=== PATIENT | female | born 1975 | race Caucasian/White ===

== ENCOUNTER 2024-02-18 14:47 | Outpatient (REF) | payer OTHER, SELFPAY ==
[2024-02-18 15:49] LABS: MANUAL DIFF FLAG NO
[2024-02-18 16:08] LABS: Basophils Absolute Auto 0.1 X10*3/uL (0.0-0.2); Basophils Percent Auto 1.1 % (0-2); Eosinophils Absolute Auto 0.2 X10*3/uL (0.0-0.4); Eosinophils Percent Auto 2.1 % (0-4); Hematocrit 41.2 % (37.0-47.0); Hemoglobin 13.9 g/dl (12.0-16.0); Imm Gran Abs Auto 0.01 X10*3/uL (0.00-0.03); Imm Gran Pct Auto 0.1 % (0.0-0.4); Lymphocytes Absolute Auto 2.9 X10*3/uL (1.2-4.9); Lymphocytes Percent Auto 39.7 % (20-40); Mean Corpuscular HGB Conc 33.7 g/dl (31.0-35.0); Mean Corpuscular Hemoglobin 30.2 pg (27.0-33.0); Mean Corpuscular Volume 89.4 fL (80.0-98.0); Mean Platelet Volume 10.7 fL (9.4-12.3); Monocytes Absolute Auto 0.5 X10*3/uL (0.1-1.2); Monocytes Percent Auto 6.9 % (2-11); Neutrophils Absolute Auto 3.6 x10*3/uL (2.0-8.3); Neutrophils Percent Auto 50.1 % (45-73); Platelet Count 264 X10*3/uL (160-400); Red Blood Count 4.61 X10*6/uL (4.20-5.50); Red Cell Distribution Width 13.3 % (11.0-16.0); White Blood Count 7.2 X10*3/uL (4.8-10.8)
[2024-02-18 17:04] LABS: Erythrocyte Sedimentation Rate 2 MM/HR (0-20)
[2024-02-19 11:13] LABS: IgA 118 mg/dL (47-310); IgG 629 mg/dL (600-1640); IgM 63 mg/dL (50-300)
[2024-02-19 15:54] LABS: Immunoglobulin G Subclass 1 368 mg/dL (382-929); Immunoglobulin G Subclass 2 99 mg/dL (241-700); Immunoglobulin G Subclass 3 25 mg/dL (22-178); Immunoglobulin G Subclass 4 11.5 mg/dL (4-86); Immunoglobulin G Total 553 mg/dL (600-1640)
[2024-02-19 20:19] LABS: Class Alternaria alternata 0; Class Aspergillus fumigatus 0; Class Bermuda Grass 0; Class Birch 0; Class Cat Dander 0; Class Cladosporium herbarum 0; Class Cockroach 0; Class Common Ragweed 0; Class Cottonwood 0; Class Derm. pterony 0; Class Dermatophagoides farinae 0; Class Dog Dander 0; Class Elm 0; Class Maple Box Elder 0; Class Mountain Cedar 0; Class Mouse Urine Protein 0; Class Mugwort 0; Class Oak 0; Class Penicillium crysogenum 0; Class Rough Pigweed 0; Class Sheep Sorrel 0; Class Sycamore 0; Class Timothy Grass 0; Class Walnut Tree 0; Class White Ash 0; Class White Mulberry 0; D001 IgE D pteronyssinus <0.10 kU/L; D002 - IgE D farinae <0.10 kU/L; E001 - IgE Cat Dander <0.10 kU/L; E005 - IgE Dog Dander <0.10 kU/L; E072-IgE Mouse Urine <0.10 kU/L; G002 IgE Bermuda Grass <0.10 kU/L; G006 - IgE Timothy Grass <0.10 kU/L; I006-IgE Cockroach, German <0.10 kU/L; Immunoglobulin E 4 kU/L (<OR=114); M001 IgE Penicillium chrysogen <0.10 kU/L; M002 - IgE Cladosporium herbar <0.10 kU/L; M003 - IgE Aspergillus fumigat <0.10 kU/L; M006 - IgE Alternaria alternat <0.10 kU/L; T001 IgE Maple/Box Elder <0.10 kU/L; T003 IgE Common Silver Birch <0.10 kU/L; T006 - IgE Cedar, Mountain <0.10 kU/L; T007 - IgE Oak, White <0.10 kU/L; T008 IgE Elm, American <0.10 kU/L; T010 - IgE Walnut <0.10 kU/L; T011 - IgE Maple Leaf Sycamore <0.10 kU/L; T014 - IgE Cottonwood <0.10 kU/L; T015 - IgE Ash, White <0.10 kU/L; T070 - IgE White Mulberry <0.10 kU/L; W001 - IgE Ragweed, Short <0.10 kU/L; W006 - IgE Mugwort <0.10 kU/L; W014 IgE Pigweed, Common <0.10 kU/L; W018 IgE Sheep Sorrel <0.10 kU/L
[2024-02-20 14:43] LABS: Cyclic Citrullinated Peptide <16 UNITS
[2024-02-26 14:22] LABS: Asperg fumigatus Precip Abs NEGATIVE (NEGATIVE); Micropoly faeni Abs NEGATIVE (NEGATIVE); Pigeon serum Abs NEGATIVE (NEGATIVE); Saccharo pora viridis Abs NEGATIVE (NEGATIVE); Thermo candidus Abs NEGATIVE (NEGATIVE); Thermoa vulgaris #1 NEGATIVE (NEGATIVE)
[2024-02-27 07:58] LABS: Anti Nuclear Antibody Screen NEGATIVE (NEGATIVE)
== END 2024-02-18 14:48 | disposition home or self-care (01) ==
LOC: HO.LAB 14:47
PROVIDERS: PCP Physician Assistant Medical; Referring Provider Allergy & Immunology; Visit Provider Hospitalist
DX: R91.8 Other nonspecific abnormal finding of lung field (principal); R91.1 Solitary pulmonary nodule; J41.1 Mucopurulent chronic bronchitis; J45.40 Moderate persistent asthma, uncomplicated; T78.40XA Allergy, unspecified, initial encounter
CPT/HCPCS: 36415; 82784; 82785; 85025; 85652; 86003; 86038; 86200; 86331; 86606; 86609

== ENCOUNTER 2024-02-18 14:47 | Outpatient (AMB) | payer OTHER, SELFPAY ==
[2024-02-18 14:53] VITALS: BP 120/68; PULSE 67; O2SAT 97; BMI 27.6
--- NOTE | 2024-02-18 14:53 | MHC.OFFVIS ---
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 The patient is a 49 year woman with a known history of allergies presenting with worsening cough. The patient states that she was in her usual state health until sometime in the winter time when she was exposed to a sick contact. She started developing worsening respiratory symptoms and cough. She ultimately after that went on a trip to [place]. While she was there she also became sick with a respiratory virus. She did test negative for COVID-19. Ultimately after that the patient started developing worsening productive cough. The mucus is excessive and discolored typically greenish in color. She was evaluated multiple times by medical transcription editor. She was given about 4 rounds of prednisone and antibiotics. Although she does feel better she feels like she is still having significant chest congestion. She still has a moderate productive cough. She feels like her lungs are getting better but still feels significant sinus congestion and postnasal drip. She had been evaluated by ENT as well. As part of the workup she did have a CT scan of the chest done at [facility] in 10/23/2023 which was personally by me. No evidence of any active disease Noted. Although possibly some mild bronchitis based on some thickening of the airways. In addition to that she has had some blood work Including a normal eosinophil count. Has not had blood work now in more than a year. Therefore will going to go ahead and request additional blood work to assess her immune system inflammatory conditions and also allergy issues. As far as exposures the patient has had exposure to mold. She does have a humidifier in her home though. No obvious smoldering home. Denies any birds. Denies any exposure to any fumes or toxins. She is a nonsmoker. Does not vape. 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 On examination, she does have significant inflammation nasal turbinates. The patient also has evidence of purulent secretions in her posterior pharynx. Her cough appears to be deep and congested consistent with lower respiratory involvement as well. [facility] Medical History (Updated 02/18/24 @ 23:33 by Pankaj Rucker MD) Allergies Asthma Sinusitis Chronic bronchitis Social History (Updated 02/18/24 @ 15:01 by TATUM Fair) Patient Tobacco Use Status: Never used Tobacco Review of Systems Const Reports difficulty sleeping and Denies fever(s) Eyes Reports no additional complaints ENT Reports nasal congestion, Reports nasal discharge and Reports post nasal drip Card Denies chest pain Resp Reports change in phlegm color, Reports chest congestion, Reports cough and Reports wheezing GI Reports no additional complaints Musc Reports no additional complaints Skin/Breast Denies rash Carl/Lymph Denies lymphadenopathy Aller/Immun Reports wheezing Physical Exam Vital Signs: Last Vital Signs Pulse 67 02/18/24 14:53 BP 120/68 02/18/24 14:53 Pulse Ox 97 02/18/24 14:53 Oxygen Delivery Method Room Air 02/18/24 14:53 BMI result Body Mass Index 27.6 Const General: comfortable HEENT Ears: TM's normal bilaterally General nose exam: Normal external nose present, Abnormal mucous membranes and turbinates present erythematous and no nasal polyps Throat: Yes postnasal drainage Neck Neck: Yes supple Chest Chest palpation & inspection: normal inspection of the chest Resp Effort & Inspection: normal respiratory effort Auscultation: diminished lung sounds and other (coarse on the right side) Cardio Heart sounds: S1 normal heart sound present and S2 normal heart sound present GI Palpation (GI): Soft to palpation Skin General skin exam: no rashes or lesions noted Extrem General: Yes no clubbing, cyanosis or edema Assessment & Plan Assessment & Plan (1) Chronic bronchitis: Code(s): J42 - Unspecified chronic bronchitis Category: Medical Qualifiers: Chronic bronchitis type: mucopurulent Qualified Code(s): J41.1 - Mucopurulent chronic bronchitis (2) Sinusitis: Code(s): J32.9 - Chronic sinusitis, unspecified Category: Medical Qualifiers: Sinusitis location: unspecified location Chronicity: chronic Qualified Code(s): J32.9 - Chronic sinusitis, unspecified (3) Asthma: Code(s): J45.909 - Unspecified asthma, uncomplicated Category: Medical Qualifiers: Asthma severity: moderate Asthma persistence: persistent Asthma complication type: uncomplicated Qualified Code(s): J45.40 - Moderate persistent asthma, uncomplicated (4) Allergies: Code(s): T78.40XA - Allergy, unspecified, initial encounter Category: Medical Qualifiers: Encounter type: initial encounter Qualified Code(s): T78.40XA - Allergy, unspecified, initial encounter Plan stop spiriva, flovent start Trelegy 200mcg daily Xopenex as needed neti bottle budesonide daily start azithromycin MWF will need an EKG soon Bloodwork If no better in 3-4 weeks, we will plan a bronchoscopy F/U 6-8 weeks Orders: Orders Cyclic Citrullinated Peptide Today J42 - Unspecified chronic bronchitis Immunoglobulin E Today J42 - Unspecified chronic bronchitis Resp Allergy Profile Region I Today J42 - Unspecified chronic bronchitis, R91.1 - Solitary pulmonary nodule Hypersensitive Pneumonitis Prf Today J42 - Unspecified chronic bronchitis, R91.8 - Other nonspecific abnormal finding of lung field LEILANI Reflex Titer and Pattern Today J42 - Unspecified chronic bronchitis Complete Blood Count Auto Diff Today J42 - Unspecified chronic bronchitis Immunoglobulin G Subclasses Today J42 - Unspecified chronic bronchitis Immunoglobulins,IgG IgA IgM Today J42 - Unspecified chronic bronchitis Erythrocyte Sedimentation Rate Today J42 - Unspecified chronic bronchitis Medications: New budesonide 0.5 mg (2 mL) inhalation DAILY 30 days 60 mL 2RF azithromycin Take 1 tablet on Saturday/Saturday/Saturday 250 mg PO 3XW 28 days 12 tabs 3RF K21.9 - Gastro-esophageal reflux disease without esophagitis [id number]-[id number]-twriqmdb 200-62.5-25 mcg (Trelegy Ellipta) 1 inh inhalation DAILY 30 days 60 ea 12RF Coding Level of Care Code New Pt Level 4 (41457) Diagnoses Mucopurulent chronic bronchitis J41.1 Chronic bronchitis type: mucopurulent Chronic sinusitis, unspecified location J32.9 Sinusitis location: unspecified location Chronicity: chronic Moderate persistent asthma without complication J45.40 Asthma severity: moderate Asthma persistence: persistent Asthma complication type: uncomplicated Allergy, initial encounter T78.40XA Encounter type: initial encounter Time Spent (min) 40
== END 2024-02-18 15:31 | disposition home or self-care (01) ==
PROVIDERS: PCP Physician Assistant Medical; Referring Provider Allergy & Immunology; Visit Provider Hospitalist
DX: J41.1 Mucopurulent chronic bronchitis (principal); J32.9 Chronic sinusitis, unspecified; J45.40 Moderate persistent asthma, uncomplicated; T78.40XA Allergy, unspecified, initial encounter
CPT/HCPCS: 99204

== ENCOUNTER 2024-04-09 14:17 | Outpatient (AMB) | payer OTHER, SELFPAY ==
--- NOTE | 2024-04-09 14:29 | MHC.OFFVIS ---
Vital Signs 04/09/24 14:30 Height 5 ft 2 in Weight 145 lb 8.081 oz BMI 26.6 BP 128/70 Blood Pressure Location Lt brachial Position Sitting Pulse 60 Pulse Source Pulse Oximeter Pulse Oximetry (%) 97 Oxygen Delivery Method Room Air Intake Visit Reasons: Asthma Shoe Cleaner Required: No Allergies aspirin Allergy (Severe, Verified 04/09/24 14:33) Itching sulfamethoxazole [From Bactrim] Allergy (Severe, Verified 04/09/24 14:33) Difficulty Breathing trimethoprim [From Bactrim] Allergy (Severe, Verified 04/09/24 14:33) Difficulty Breathing Sulfa Drugs Adverse Reaction (Severe, Uncoded 04/09/24 14:33) Hives HPI Comments Details: The patient is a 49 year woman with a known history of allergies presenting with worsening cough. The patient states that she was in her usual state health until sometime in the winter time when she was exposed to a sick contact. She started developing worsening respiratory symptoms and cough. She ultimately after that went on a trip to [place]. While she was there she also became sick with a respiratory virus. She did test negative for COVID-19. Ultimately after that the patient started developing worsening productive cough. The mucus is excessive and discolored typically greenish in color. She was evaluated multiple times by medical researcher. She was given about 4 rounds of prednisone and antibiotics. Although she does feel better she feels like she is still having significant chest congestion. She still has a moderate productive cough. She feels like her lungs are getting better but still feels significant sinus congestion and postnasal drip. She had been evaluated by ENT as well. As part of the workup she did have a CT scan of the chest done at [facility] in 10/23/2023 which was personally by me. No evidence of any active disease Noted. Although possibly some mild bronchitis based on some thickening of the airways. In addition to that she has had some blood work Including a normal eosinophil count. Has not had blood work now in more than a year. Therefore will going to go ahead and request additional blood work to assess her immune system inflammatory conditions and also allergy issues. As far as exposures the patient has had exposure to mold. She does have a humidifier in her home though. No obvious smoldering home. Denies any birds. Denies any exposure to any fumes or toxins. She is a nonsmoker. Does not vape. 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 On examination, she does have significant inflammation nasal turbinates. The patient also has evidence of purulent secretions in her posterior pharynx. Her cough appears to be deep and congested consistent with lower respiratory involvement as well. 04/09/2024 the patient is here for a pulmonary follow-up visit. She is feeling a little better. She responded well to the Trelegy inhaler. Her chest tightness and wheezing has improved. In addition to that she has been on the azithromycin 3 times a week. Her chest congestion is also better. Although her nose is still an issue. She has had significant irritation to the nose. Specially when using the budesonide we did Neti bottle. She has been getting significant irritation and pain. The areas significantly inflamed to psych was before. Therefore, will go ahead and stop any kind of irritating nasal therapy at this time. We did review her blood work. She does have a low IgG suggesting some degree of hypogammaglobulinemia. Therefore will continue the azithromycin right now and will go ahead and see if she has been vaccinated for pneumonia. If she has not she can get her pneumococcal 23 Valent we can did check her titers a few weeks later to make sure that she is developing an adequate response in view of her immunodeficiency. In view of her significant sinusitis will go ahead and put a referral went to ENT in order to better address the issues. [facility] Medical History (Updated 04/09/24 @ 15:08 by Pankaj Rucker MD) Allergies Asthma Sinusitis Chronic bronchitis Social History (Updated 02/18/24 @ 15:01 by TATUM Fair) Patient Tobacco Use Status: Never used Tobacco Review of Systems Const Reports difficulty sleeping and Denies fever(s) Eyes Reports no additional complaints ENT Reports nasal congestion, Reports nasal discharge, Reports post nasal drip and Reports sinus pressure Card Denies chest pain Resp Reports change in phlegm color, Reports chest congestion, Reports cough and Reports wheezing GI Reports no additional complaints Musc Reports no additional complaints Skin/Breast Denies rash Carl/Lymph Denies lymphadenopathy Aller/Immun Reports wheezing Physical Exam Vital Signs: Last Vital Signs Pulse 60 04/09/24 14:30 BP 128/70 04/09/24 14:30 Pulse Ox 97 04/09/24 14:30 Oxygen Delivery Method Room Air 04/09/24 14:30 BMI result Body Mass Index 26.6 Const General: comfortable HEENT Ears: TM's normal bilaterally General nose exam: Normal external nose present, Abnormal mucous membranes and turbinates present erythematous and no nasal polyps Throat: Yes postnasal drainage Neck Neck: Yes supple Chest Chest palpation & inspection: normal inspection of the chest Resp Effort & Inspection: normal respiratory effort Auscultation: diminished lung sounds and other (coarse on the right side) Cardio Heart sounds: S1 normal heart sound present and S2 normal heart sound present GI Palpation (GI): Soft to palpation Skin General skin exam: no rashes or lesions noted Extrem General: Yes no clubbing, cyanosis or edema Assessment & Plan Assessment & Plan (1) Chronic bronchitis: Code(s): J42 - Unspecified chronic bronchitis Category: Medical Qualifiers: Chronic bronchitis type: mucopurulent Qualified Code(s): J41.1 - Mucopurulent chronic bronchitis (2) Sinusitis: Code(s): J32.9 - Chronic sinusitis, unspecified Category: Medical Qualifiers: Chronicity: chronic Sinusitis location: unspecified location Qualified Code(s): J32.9 - Chronic sinusitis, unspecified (3) Asthma: Code(s): J45.909 - Unspecified asthma, uncomplicated Category: Medical Qualifiers: Asthma complication type: uncomplicated Asthma persistence: persistent Asthma severity: moderate Qualified Code(s): J45.40 - Moderate persistent asthma, uncomplicated (4) Allergies: Code(s): T78.40XA - Allergy, unspecified, initial encounter Category: Medical Qualifiers: Encounter type: initial encounter Qualified Code(s): T78.40XA - Allergy, unspecified, initial encounter (5) Hypogammaglobulinemia: Code(s): 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 Category: Medical Plan continue Trelegy 200mcg daily Xopenex as needed neti bottle stop budesonide daily start nasonex ENT referral continue azithromycin MWF EKG Bloodwork, strep pneumo titers (had PSV23 appx 2021) consider IVIG if titers a low and continues to be symptomatic F/U 6-8 weeks Orders: Orders ECG 12 lead EKG 04/09/24 J44.9 - Chronic obstructive pulmonary disease, unspecified Immunoglobulin G Subclasses 04/09/24 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 S pneumoniae IgG Ab 23 04/09/24 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 Erythrocyte Sedimentation Rate 04/09/24 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 Referrals Ear/Nose/Throat Referral J32.9 - Chronic sinusitis, unspecified Medications: New mometasone 50 mcg/actuation (Nasonex 24hr Allergy) administer into each nostril 2 sprays intranasal DAILY 17 grams 6RF 30 days Coding Level of Care Code Est Pt Level 4 (26726) Diagnoses Mucopurulent chronic bronchitis J41.1 Chronic bronchitis type: mucopurulent Chronic sinusitis, unspecified location J32.9 Chronicity: chronic Sinusitis location: unspecified location Moderate persistent asthma without complication J45.40 Asthma complication type: uncomplicated Asthma persistence: persistent Asthma severity: moderate Allergy, initial encounter T78.40XA Encounter type: initial encounter Hypogammaglobulinemia D80.1 Time Spent (min) 17
[2024-04-09 14:30] VITALS: BP 128/70; PULSE 60; O2SAT 97; BMI 26.6
== END 2024-04-09 15:08 | disposition home or self-care (01) ==
PROVIDERS: PCP Physician Assistant Medical; Visit Provider Hospitalist
DX: J41.1 Mucopurulent chronic bronchitis (principal); J32.9 Chronic sinusitis, unspecified; J45.40 Moderate persistent asthma, uncomplicated; T78.40XA Allergy, unspecified, initial encounter; D80.1 Nonfamilial hypogammaglobulinemia
CPT/HCPCS: 99214

== ENCOUNTER → 2024-04-09 14:17 | Outpatient (BNVA) | payer OTHER, SELFPAY | PROVIDERS: PCP Physician Assistant Medical; Visit Provider Hospitalist | DX: J42 Unspecified chronic bronchitis (principal) ==

== ENCOUNTER 2024-04-14 15:24 | Outpatient (REF) | payer OTHER, SELFPAY ==
--- NOTE | 2024-04-14 15:28 | ECG_ITS ---
Test Reason : COPD Blood Pressure : / mmHG Vent. Rate : 049 BPM Atrial Rate : 049 BPM P-R Int : 152 ms QRS Dur : 088 ms QT Int : 492 ms P-R-T Axes : 050 088 064 degrees QTc Int : 444 ms Sinus bradycardia Abnormal ECG No previous ECGs available Referred By: Pankaj Rucker Electronically Signed By:MEGAN MOCTEZUMA
[2024-04-14 18:12] LABS: Erythrocyte Sedimentation Rate 2 MM/HR (0-20)
[2024-04-15 14:43] LABS: Immunoglobulin G Subclass 1 366 mg/dL (382-929); Immunoglobulin G Subclass 2 99 mg/dL (241-700); Immunoglobulin G Subclass 3 25 mg/dL (22-178); Immunoglobulin G Subclass 4 11.3 mg/dL (4-86); Immunoglobulin G Total 567 mg/dL (600-1640)
[2024-04-15 22:33] LABS: Immunoglobulin E <2 kU/L (<OR=114)
== END 2024-04-14 15:25 | disposition home or self-care (01) ==
LOC: HO.LAB 15:24
PROVIDERS: PCP Physician Assistant Medical; Visit Provider Hospitalist
DX: D80.1 Nonfamilial hypogammaglobulinemia (principal); J42 Unspecified chronic bronchitis
CPT/HCPCS: 36415; 82784; 82785; 85652; 86317; 93005

== ENCOUNTER 2024-06-15 16:22 | Outpatient (REF) | payer OTHER, SELFPAY ==
[2024-06-15 16:36] LABS: MANUAL DIFF FLAG NO
[2024-06-15 16:41] LABS: Basophils Absolute Auto 0.1 X10*3/uL (0.0-0.2); Eosinophils Absolute Auto 0.2 X10*3/uL (0.0-0.4); Eosinophils Percent Auto 2.3 % (0-4); Hematocrit 38.4 % (37.0-47.0); Hemoglobin 13.2 g/dl (12.0-16.0); Imm Gran Abs Auto 0.02 X10*3/uL (0.00-0.03); Imm Gran Pct Auto 0.3 % (0.0-0.4); Lymphocytes Absolute Auto 2.7 X10*3/uL (1.2-4.9); Lymphocytes Percent Auto 36.8 % (20-40); Mean Corpuscular HGB Conc 34.4 g/dl (31.0-35.0); Mean Corpuscular Hemoglobin 30.3 pg (27.0-33.0); Mean Corpuscular Volume 88.1 fL (80.0-98.0); Mean Platelet Volume 10.3 fL (9.4-12.3); Monocytes Absolute Auto 0.5 X10*3/uL (0.1-1.2); Monocytes Percent Auto 6.9 % (2-11); Neutrophils Absolute Auto 3.8 x10*3/uL (2.0-8.3); Neutrophils Percent Auto 52.7 % (45-73); Platelet Count 233 X10*3/uL (160-400); Red Blood Count 4.36 X10*6/uL (4.20-5.50); Red Cell Distribution Width 12.8 % (11.0-16.0); White Blood Count 7.3 X10*3/uL (4.8-10.8)
[2024-06-15 17:15] LABS: Anion Gap 12 (12-20); Blood Urea Nitrogen 14 mg/dL (9-16); Carbon Dioxide 24 mmol/L (22-29); Chloride 109 mmol/L (96-108); Estimated Glomerular Filt Rate > 60; Glucose Random 73 mg/dL (60-115); Potassium 3.6 mmol/L (3.3-5.1); Sodium 141 mmol/L (135-145)
[2024-06-15 17:29] LABS: Erythrocyte Sedimentation Rate 1 MM/HR (0-20)
[2024-06-16 13:43] LABS: Immunoglobulin G Subclass 1 360 mg/dL (382-929); Immunoglobulin G Subclass 2 105 mg/dL (241-700); Immunoglobulin G Subclass 3 20 mg/dL (22-178); Immunoglobulin G Subclass 4 10.4 mg/dL (4-86); Immunoglobulin G Total 550 mg/dL (600-1640)
== END 2024-06-15 16:23 | disposition home or self-care (01) ==
LOC: HO.LAB 16:22
PROVIDERS: PCP Physician Assistant Medical; Visit Provider Hospitalist
DX: D80.1 Nonfamilial hypogammaglobulinemia (principal); D84.89 Other immunodeficiencies
CPT/HCPCS: 36415; 80048; 82784; 85025; 85652; 86317

== ENCOUNTER 2024-07-30 15:05 | Outpatient (REF) | payer OTHER, SELFPAY ==
--- OUTSIDE RECORDS SUMMARY | 2024-07-30 15:08 | XMS_ITS ---
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 Name Role Phone NONI SOLORZANO Primary Care Provider REASON FOR VISIT R/S sema shot Encounters Encounter Location Date Provider Diagnosis [address] [place] [id number] 07/27/2024 NONI SOLORZANO PLAN OF TREATMENT Next Appt Details Provider Name:JAYSON LARA, 08/06/2024 03:15:00 PM, [address], [place], [address], Provider Name:JAYSON LARA, 08/13/2024 03:15:00 PM, [address], [place], [address], Provider Name:DEISI YAN, 08/17/2024 03:15:00 PM, [address], [place], [address], Progress Notes * SOFIA NATION EDOB:1974 (49 yo F)Acc No.[id number]:07/27/2024 Patient:??SOFIA NATION :1975?Age:49 Y?Sex:Fe male Address:[address] [place] [address] * true * Date:??
--- OUTSIDE RECORDS SUMMARY | 2024-07-30 15:08 | XMS_ITS | Patient Health Record ---
Author Organization [facility] Address [address] [facility] [address] [place] [address] Care Team Providers Care Warehouse Unloader Name Role Phone Phani Barkley Primary Care Provider Unavailabl e Allergies Allergen (clinical drug ingredient) Drug/Non Drug Allergy documented on EMR Reaction Allergy Type Onset Date Status Atronine Ghs, Gluten free (uncoded) Unknown Allergy Active aspirin Aspirin Unknown Drug Allergy Active Substance with sulfonamide structure and antibacterial mechanism of action (substance) Sulfa Antibiotics Unknown Drug Allergy Active Reason For Referral No Information Medications Medication SIG (Take, Route, Frequency, Duration) Notes Start Date End Date Status Singulair 10 MG 1 tablet Orally Once a day Not-Taking SUMAtriptan Succinate 50 MG 1 tablet at least 2 hours between doses as needed Orally Once a day Active Wellbutrin XL 150 MG 1 tablet in the mor lawanda Orally twice daily Active NuvaRing 0.12-0.015 MG/24HR [address] for 3 weeks, remove, and replace with a new ring after 7 day break Vaginal Active Align - as directed Orally A ctive Symbicort 160-4.5 MCG/ACT 2 puffs Inhala tion Twice a day Active ProAir HFA 108 (90 Base) MCG/ACT 1 puff as needed Inhalation every 4 hrs Active valACYclovir HCl 500 MG 1 tablet Orally Once a day prn Active Probiotic Not-Taking Multivitamin - 1 tablet Orally Once a day Active Yanni Allergy 180 MG 1 tablet Swallow whole with water; do not take with fruit juices. 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 [address] [facility] [place] [phone] [id number] Kenzie Crawford Self - patient is the insured Medical (General) History Medical History History ICD Code asthma seasonal allergies headache rosacea anxiety Surgical History Surgery Date(Month/Year) cataract removal uterine ablation
--- OUTSIDE RECORDS SUMMARY | 2024-07-30 15:08 | XMS_ITS ---
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 Name Role Phone NONI SOLORZANO Primary Care Provider JHONNY BARKLEY [phone] Encounters Encounter Location Date Provider Diagnosis [facility] [address] [place] [address] 07/27/2024 JHONNY BARKLEY PLAN OF TREATMENT Next Appt Details Provider Name:JHONNY BARKLEY, 08/06/2024 03:15:00 PM, [address], [place], [address], Provider Name:JHONNY BARKLEY, 08/13/2024 03:15:00 PM, [address], [place], [address], Provider Name:DEISI YAN, 08/17/2024 03:15:00 PM, [address], [place], [address], Progress Notes * SOFIA NATION EDOB:1974 (49 yo F)Acc No.[id number]:07/27/2024 Patient:??SOFIA NATION Provider:??Jhonny Barkley MD :1975?Age:49 Y?Sex:Fe male Date:07/27/2024 Address[address] [place] Pcp:NONI SOLORZANO Subjective: * Chief Complaints: * ? * Medical History:?? Objective: Assessment: Plan: * Treatment: * Images: Billing Information: * Visit Code:?? * Procedure Codes:?? * Sign off status: Pending * Provider:??Jhonny Barkley MD Date:??07/27
--- OUTSIDE RECORDS SUMMARY | 2024-07-30 15:08 | XMS_ITS | Patient Health Record ---
Author Organization [facility] Address [address] [facility] [place] [address] Care Team Providers Care Mate Chief Name Role Phone NONI SOLORZANO Primary Care Provider BARKLEY, JHONNY Unavailable [phone] DEISI YAN Unavailable [phone] ALLERGIES Allergen (clinical drug ingredient) Drug/Non Drug Allergy documented on EMR Reaction Allergy Type Onset Date Status aspirin aspirin (uncoded) Unknown Allergy Ac tive atronine ghs (uncoded) Unknown Allergy Active Gluten gluten free (uncoded) Unknown Allergy Active Substance with sulfonamide structure and antibacterial mechanism of action (substance) sulfa (uncoded) Unknown Allergy Active RESULTS Component Value Reference Range Notes MYCOPLASMA PNEUMONIAE ANTIBO DIES (IGG,IGM) Reviewed date:10/09/2023 10:29:47 AM Interpretation: Performing Lab:JONO, [facility] [id number] Lyla Argueta, LsbtbkzroGI[address] Geremias Erazo M.D.,PhD Notes/Report: MYCOPLASMA PNEUMONIAE ANTIBODY (IGG) <=0.90 <=0.90 Reference Range: <=0.90 Negative 0.91-1.09 Equivocal >=1.10 Positive A positive IgG result indicates that the patient has antibody to Mycoplasma. It does not differentiate between an active or past infection. The clinical diagnosis must be interpreted in conjunction with the clinical signs and symptoms of the patient. MYCOPLASMA PNEUMONIAE ANTIBODY (IGM) 68 <770 U/mL Reference Range: <770 U/ml Negative 770-950 U/mL Low positive >950 U/mL Positive A positive IgM antibody result is consistent with recent infection. However, a negative result does not necessarily rule out recent infection as some individuals may not mount another IgM response, if previously infected. A positive IgM antibody result with or without a positive IgG antibody result, is consistent with recent infection. However, a negative result does not necessarily rule out recent infection as some individuals may not mount another IgM response, if previously infected. A positive IgG antibody result in the absence of a positive IgM antibody result, indicates that the patient has antibody to Mycoplasma. It does not differentiate between an active or past infection. The clinical diagnosis must be interpreted in conjunction with the clinical signs and symptoms of the patient. S. PNEUMONIAE ANTIGENS, URIN E Reviewed date:10/07/2023 08:11:28 AM Interpretation: Performing Lab:JONO [facility] [id number] [facility] Argueta, LasnjhecmZT[address] Geremias Erazo M.D.,PhD Notes/Report: S. PNEUMONIAE ANTIGENS, URINE Not Detected Not Detected T4, FREE Reviewed date:10/04/2023 08:06:46 AM Interpretation: Performing Lab:GEOFFREY2, [facility] Tonio Sarmiento Notes/Report: T4, FREE 0.9 0.8-1.8 ng/dL TSH Reviewed date:10/04/2023 08:06:46 AM Interpretation: Performing Lab:GEOFFREY2 [facility] Tonio Sarmiento Notes/Report: TSH 1.89 Reference Range > or = 20 Years 0.40-4.50 Ranges First trimester 0.26-2.66 Second trimester 0.55-2.73 Third trimester 0.43-2.91 T3, FREE Reviewed date:10/04/2023 08:06:46 AM Interpretation: Performing Lab:GEOFFREY2, [facility] [address] Tonio Sarmiento Notes/Report: T3, FREE 2.9 2.3-4.2 pg/mL LEGIONELLA PNEUMOPHILA AB (I GG), IFA Reviewed date:10/10/2023 08:16:20 AM Interpretation: Performing Lab:EZ, [facility]/Tyrel [facility],[address] [address] [place] MountLjbeoabrbbAG[address] Erica Nguyen MD,PhD,SHIRLEY Notes/Report: LEGIONELLA PNEUMOPHILA AB (IGG), IFA <1:64 REFERENCE RANGE: <1:64 This assay detects serum IgG antibodies to Legionella pneumophila serogroups 1-7. A single IgG titer >1:256 provides presumptive evidence of infection at an undetermined time. A four-fold rise in IgG titer to >=1:256 from the acute to the convalescent (4-6 weeks post-acute) phase provides evidence of a recent infection with Legionella. A negative result (titer <1:64) may indicate early infection, with sample collection prior to antibody development; submission of a later sample is suggested if clinically warranted. This test was developed and its analytical performance characteristics have been determined by [facility]. It has not been cleared or approved by the FDA. This assay has been validated pursuant to the CLIA regulations and is used for clinical purposes. US Liver Reviewed date:10/17/2023 01:56:35 PM Interpretation: Performing Lab: Notes/Report: Original [facility]ing [facility] [id number] Reviewed date:05/19/2024 08:04:55 AM Interpretation: Performing Lab:[facility], [address] [place] [address], Phone - [phone], Director [place] Notes/Report: Hemoglobin A1c 5.2 4.8-5.6 % . Prediabetes: 5.7 - 6.4 Diabetes: >6.4 Glycemic control for adults with diabetes: <7.0 Vitamin [id number] Reviewed date:05/19/2024 08:04:55 AM Interpretation: Performing Lab:[facility], [address] [place] [address], [place], Phone - [phone], Director [place] Notes/Report: Vitamin B12 578 832-8778 pg/mL Urinalysis, Complete-[id number] Reviewed date:05/19/2024 08:04:55 AM Interpretation: Performing Lab:[facility], [address] [facility], [place], Phone - [phone], Director - MDJodry Notes/Report: Specific [place] 1.023 1.005-1.030 pH 5.5 5.0-7.5 Urine-Color Yellow Yellow Appearance Clear Clear WBC Esterase Negative Negative Protein Negative Negative/Trace Glucose Negative Negative Ketones Negative Negative Occult Blood Negative Negative Bilirubin Negative Negative Urobilinogen,Semi-Qn 0.2 0.2-1.0 mg/dL Nitrite, Urine Negative Negative Microscopic Examination Micr oscopic follows if indicated. Microscopic Examination See below: Micr oscopic was indicated and was performed. WBC None seen 0 - 5 /hpf RBC None seen 0 - 2 /hpf Epithelial Cells (non renal) >10 0 - 10 /hpf Epithelial Cells (renal) Casts None seen None seen /lpf Cast Type Crystals Crystal Type Mucus Threads Bacteria None seen None seen/Few Yeast Trichomonas Comment [id number] Reviewed date:05/19/2024 08:04:55 AM Interpretation: Performing Lab:[facility], [address] [facility], Phone - [phone], Director - [facility] Notes/Report: TSH 1.540 0.450-4.500 uIU/mL CBC With Differential/Platel et-[id number] Reviewed date:05/19/2024 08:04:55 AM Interpretation: Performing Lab:[facility], [address] [facility], [place], Phone - [phone], Director [facility] Notes/Report: WBC 5.2 3.4-10.8 x10E3/uL RBC 4.70 3.77-5.28 x10E6/uL Hemoglobin 14.3 11.1-15.9 g/dL Hematocrit 43.2 34.0-46.6 % MCV 92 79-97 fL MCH 30.4 26.6-33.0 pg MCHC 33.1 31.5-35.7 g/dL RDW 12.4 11.7-15.4 % Platelets 226 150-450 x10E3/uL Neutrophils 53 Not Estab. % Lymphs 31 Not Estab. % Monocytes 12 Not Estab. % Eos 3 Not Estab. % Basos 1 Not Estab. % Immature Cells Neutrophils (Absolute) 2.8 1.4-7.0 x10E3/uL Lymphs (Absolute) 1.6 0.7-3.1 x10E3/uL Monocytes(Absolute) 0.6 0.1-0.9 x10E3/uL Eos (Absolute) 0.1 0.0-0.4 x10E3/uL Baso (Absolute) 0.0 0.0-0.2 x10E3/uL Immature Granulocytes 0 Not Estab. % Immature Grans (Abs) 0.0 0.0-0.1 x10E3/uL NR Hematology Comments: Vitamin D, 16-[id number] Reviewed date:05/19/2024 08:04:55 AM Interpretation: Performing Lab:[facility], [address] [place] [address], Phone - [phone], Director - Shukriy Notes/Report: Vitamin D, 25-Hydroxy 42.5 30.0-100.0 ng/mL Vitamin D deficiency has been defined by the [place] of Medicine and an Endocrine Society practice guideline as a level of serum 25-OH vitamin D less than 20 ng/mL (1,2). The Endocrine Society went on to further define vitamin D insufficiency as a level between 21 and 29 ng/mL (2). 1. IOM ([place] of Medicine). 2010. Dietary reference intakes for calcium and D. [place]: The National Academies Press. 2. Carol MF, Kobe NC, Pamella MYLES, et al. Evaluation, treatment, and prevention of vitamin D deficiency: an Endocrine Society clinical practice guideline. JCEM. 2010; 96(7):1911-30. Lipid Panel-[id number] Reviewed date:05/19/2024 08:03:26 AM Interpretation: Performing Lab:[facility], [address] [place] [address], Phone - [phone], Director - Aleta Notes/Report: Cholesterol, Total 169 100-199 mg/dL Triglycerides 156 0-149 mg/dL HDL Cholesterol 76 >39 mg/dL VLDL Cholesterol Vidal 26 5-40 mg/dL LDL Chol Calc (RUST) 67 0-99 mg/dL LDL Calc Comment: Comp. Metabolic Panel (14)-3 Reviewed date:05/19/2024 08:04:55 AM Interpretation: Performing Lab:[facility], [address] [facility], [place], Phone - [phone], Director - Aleta Notes/Report: Glucose 91 70-99 mg/dL BUN 13 6-24 mg/dL Creatinine 0.93 0.57-1.00 mg/dL eGFR 75 >59 mL/min/1.73 BUN/Creatinine Ratio 14 9-23 Sodium 142 134-144 mmol/L Potassium 4.0 3.5-5.2 mmol/L Chloride 103 96-106 mmol/L Carbon Dioxide, Total 21 20-29 mmol/L Calcium 9.4 8.7-10.2 mg/dL Protein, Total 6.0 6.0-8.5 g/dL Albumin 4.1 3.9-4.9 g/dL Globulin, Total 1.9 1.5-4.5 g/dL Bilirubin, Total <0.2 0.0-1.2 mg/dL Alkaline Phosphatase 58 44-121 IU/L AST (SGOT) 21 0-40 IU/L ALT (SGPT) 16 0-32 IU/L REASON FOR REFERRAL Reason The tube that perez s bile from pancreas and meets with thegall bladder is a bit wider than it should. Lets refer to GI for opinon if other work up needs to be done. as Diagnosis 1 Abnormal ultrasound (R93.89) Referral Organization [facility] Referring Provider First Name NONI Referring Provider Last Name RASHAD Referring Provider Speciality Internal M edicine Referred Provider Specialty Gastrointest inal surgeon Clinical Notes aletha perkins 0 10/17/2023 01:59:52 PM > sent to [facility] GI seen for colonscopy would like to see her again if not quinmaddie jasso krystal 10/29/2023 02:29:06 PM >refaxed [phone] and given to pt paper referral, Pedro Sims 03/05/2024 01:37:07 PM > The patient was seen on 11/26/2023 Referral Priority Routine MEDICATIONS Medication SIG (Take, Route, Frequency, Duration) Notes Start Date End Date Status Citalopram Hydrobromide 10 MG 1 tablet Orally Once a day for 10 days 02/20/2024 Active Probiotic - as directed Orally Active FLUoxetine HCl 20 MG 1 capsule Orally On ce a day for 30 days 02/20/2024 Active Azithromycin 500 MG 1 tablet Orally Thre e times a Week Active Tamoxifen Citrate 20 MG 1 tablet Orally Once a day Active Trelegy Ellipta 200-62.5-25 MCG/ACT 1 puff Inhalation Once a day Active IMMUNIZATIONS Vaccine Route Administration Date Status Comme nts Tdap IM Intramuscular 02/11/2023 Administered SOCIAL HISTORY Tobacco Use: Social History Observation Description Date Details (start date - stop date) Never Smoker NA - NA Sex Assigned At : Social History Observation Description Sex Assigned At Unknown Tobacco Use/Smoking Question Answer Notes Are you a nonsmoker Section Notes: Tob: Never ETOH: Social Drug: None [facility]- [employer] Handler 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 House Supervisor Tob: Never ETOH: Social Drug: None [facility]- [employer]itions Handler 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 House Supervisor Tob: Never ETOH: Social Drug: None [facility]- [employer]itions Handler 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 House Supervisor PROBLEMS Problem Type ICD Code Onset Dates Problem Status W/U Status Risk SNOMED Code Notes Problem Vitamin B12 deficien cy anemia, unspecified (D51.9) Active confirmed Vitamin B>12< deficiency anaemia (70867863) Problem Vitamin D deficiency , unspecified (E55.9) Active confirmed Vitamin D deficiency (13542832) Problem Hyperlipidemia, unspecified (E78.5) Active confirmed Hyperlip idemia (74485686) Problem Other forms of nystagmus (H55.09) Active confirmed Nystagmus (258339) Problem Unspecified asthma, uncomplicated (J45.909) Active confirmed Uncomplicated asthma (disorder) (136085129) Problem Congenital cataract (Q12.0) Active confirmed Congenital cataract (83893553) Problem Acquired hypothyroidism (E03.9) Active confirmed Acqui red hypothyroidism (414550960) Problem Anxiety (F41.9) Active confirmed Anxiet y (31506435) Problem Adult general medica l exam (Z00.00) Active confirmed Adult health examination (207093117) Problem Depression, unspecified depression type (F32.9) Active confirmed Depressive disorder (disorder) (83306982) Problem Seasonal allergies (J30.2) Active confirmed Seasonal allerg y (077714416) Problem Pain (R52) Active confirmed Pain (48464 000) Problem Sinusitis, unspecifi ed chronicity, unspecified location (J32.9) Active confirmed Chronic sinusitis (69002126) Problem Vitamin D deficiency (E55.9) Active confirmed Vitamin D deficiency (28360117) Problem Restless leg syndrom e (G25.81) Active confirmed Restless legs syndrome (42646289) Problem Abnormal ultrasound (R93.89) Active confirmed Ultrasound scan abnormal (694381363) Problem Diabetes mellitus screening (Z13.1) Active confirmed Diabetes mellitus screening (420279634) Problem History of breast cancer (Z85.3) Active confirmed Personal hist ory of primary malignant neoplasm of breast (102023500) Problem Hypertriglyceridemia (E78.1) Active confirmed 454298904 Problem Congestion of nasal sinus (R09.81) Active confirmed Congestion of nasal sinus (82403439) Problem Liver cyst (K76.89) Active confirmed Li cristina cyst (98952647) Problem Seasonal allergic rhinitis due to other allergic trigger (J30.89) Active confirmed Allergic rhinitis (39833467) Problem Asthma (J45.909) Active confirmed Asthm a (196740136) Problem Restless legs syndro me (RLS) (G25.81) Active confirmed Restless legs (45086671) Problem Hyperlipidemia (E78.5) Active confirmed Hyperlipidemia (75123885) Problem 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) VITAL SIGNS Heart Rate 65 /min 06/17/2024 Oximetry 98 % 06/17/2024 Blood pressure diastolic 80 mm Hg 06/17/2024 Height 63 in 06/17/2024 Blood pressure systolic 120 mm Hg 06/17/2024 Weight 136.9 lbs 06/17/2024 BMI 24.25 kg/m2 06/17/2024 Encounters Encounter Location Date Provider Diagnosis [facility] [address] [place] [address] 02/27/[address] [facility] [address] [place] [address] 03/04/[address] [facility] [address] [place] [address] 03/12/[address] [facility] [address] [place] [address] 03/19/[address] [facility] [address] [place] [address] 03/26/[address] [facility] [address] [place] [address] 04/02/[address] [facility] [address] [place] [address] 04/07/[address] [facility] [address] [place] [address] 04/15/[address] [facility] [address] [place] [address] 04/22/[address] [facility] [address] [place] [address] 04/29/[address] [facility] [address] [place] [address] 05/06/[address] [facility] [address] [place] [address] 05/11/[address] [facility] [address] [place] [address] 05/20/[address] [facility] [address] [place] [address] 05/28/[address] [facility] [address] [place] [address] 06/03/[address] [facility] [address] [place] [address] 06/25/[address] [facility] [address] [place] [address] 06/30/[address] [facility] [address] [place] [address] 07/09/[address] [facility] [address] [place] [address] 07/13/[address] [facility] [address] [place] [address] 07/17/[address] [facility] [address] [place] [address] 07/22/[address] [facility] [address] [place] [address] 07/27/[address] [facility] [address] [place] [address] 10/03/2023 NONIMIKO SOLORZANO Congestion of nasal sinus R09.81 ; Chronic cough R05.3 ; Asthma J45.909 and History of breast cancer Z85.3 [facility] [address] [place] [address] 02/20/2024 NONI SOLORZANO Annual physical exam Z00.00 ; History of breast cancer Z85.3 ; Hyperlipidemia, unspecified E78.5 ; Vitamin D deficiency, unspecified E55.9 ; Screening for thyroid disorder Z13.29 and Restless legs syndrome (RLS) G25.81 [facility] [address] [place] [address] 03/31/2024 NONI SOLORZANO Overweight E66.3 ; B IA 25.0-25.9,adult Z68.25 ; History of breast cancer Z85.3 and Hyperlipidemia, unspecified E78.5 [facility] [address] [place] [address] 06/17/2024 DEISI RUTHERFORDUPA Hypertriglyceridemia E78.1 [address] [address] 07/30/2024 NONI SOLORZANO IgG deficiency D80.3 [facility] [address] [place] [address] 10/11/[address] [place] [address] 10/15/2023 NONI SOLORZANO Elevated liver enzym es R74.8 [address] [facility] [address] [place] [address] 10/17/2023 NONI SOLORZANO [facility] [address] [place] [address] 12/10/2023 NONI SOLORZANO [facility] [address] [place] [address] 02/20/2024 NONI SOLORZANO Adult general medica l exam Z00.00 ; Hyperlipidemia E78.5 ; Vitamin D deficiency E55.9 ; Acquired hypothyroidism E03.9 ; Diabetes mellitus screening Z13.1 ; Vitamin B12 deficiency anemia, unspecified D51.9 and Pain R52 [address] [place] [address] 10/11/2023 NONI SOLORZANO Liver cyst K76.89 [address] [place] [address] 10/17/2023 NONI RASHAD [address] [place] [address] 02/26/2024 NONI RASHAD [address] [place] [address] 05/04/2024 NONI RASHAD [address] [place] [address] 05/05/2024 NONI RASHAD [address] [place] [address] 05/10/2024 NONI RASHAD [address] [facility] [address] [place] [address] 05/11/2024 NONI RASHAD [address] [place] [address] 05/11/2024 NONI RASHAD [address] [place] [address] 05/20/2024 NONI RASHAD [address] [address] 06/22/2024 NONI RASHAD [address] [address] 07/27/2024 NONI RASHAD ASSESSMENTS Encounter Date Diagnosis Assessment Notes Treatment Notes Treatment Clinical Notes Section Notes 10/03/2023 Congestion of nasal sinus (ICD-10 - R09.81) #Chronic cough with asthma. Patient reports that she has been ill with URI symptoms since the early fall. She is due to have a chest CT without contrast next Saturday for further evaluation, ordered by her manager of security. Will check Legionella streptococcal and mycoplasma antigen to ensure that there is no other identifiable causes. If CT chest clear and IgM antigen neg, then refer back to ENT, given it is mostly upper airway sx. Patient has been treated off-and-on with prednisone, doxycycline and azithromycin with minimal relief of her symptoms. She was started on Spiriva with mild improvement. Patient still has diminished breath sounds in the bilateral upper lobes. It is encouraged to take Mucinex, nasal saline, and Flonase, which she has been doing. She is training for a half marathon in October. # Breast cancer. On tamoxifen since 2022, to be done in 2027 # Recent basal cell removal. healing well. tegaderm over area prn (on bra line) Case discussed with collaborating physician Lily Barkley who reviewed the assessment and plan. Chart, medications, labs, vital signs reviewed. Dictation was accomplished with the use of Novadiol voice recognition software, prone to medical misidentifications and grammatical errors. This is unintentional and the practitioner does try to identify and correct these, but some could still be present. Please do not hesitate to contact practitioner for clarification. All questions answered to patients satisfaction. Patient verbalized understanding of diagnosis and treatments explained. To call sooner prior to next visit it any questions/concerns arise. 10/03/2023 Chronic cough (ICD-1 0 - R05.3) #Chronic cough with asthma. Patient reports that she has been ill with URI symptoms since the early fall. She is due to have a chest CT without contrast next Saturday for further evaluation, ordered by her manager of security. Will check Legionella streptococcal and mycoplasma antigen to ensure that there is no other identifiable causes. If CT chest clear and IgM antigen neg, then refer back to ENT, given it is mostly upper airway sx. Patient has been treated off-and-on with prednisone, doxycycline and azithromycin with minimal relief of her symptoms. She was started on Spiriva with mild improvement. Patient still has diminished breath sounds in the bilateral upper lobes. It is encouraged to take Mucinex, nasal saline, and Flonase, which she has been doing. She is training for a half marathon in October. # Breast cancer. On tamoxifen since 2022, to be done in 2027 # Recent basal cell removal. healing well. tegaderm over area prn (on bra line) Case discussed with collaborating physician Lily Barkley who reviewed the assessment and plan. Chart, medications, labs, vital signs reviewed. Dictation was accomplished with the use of Novadiol voice recognition software, prone to medical misidentifications and grammatical errors. This is unintentional and the practitioner does try to identify and correct these, but some could still be present. Please do not hesitate to contact practitioner for clarification. All questions answered to patients satisfaction. Patient verbalized understanding of diagnosis and treatments explained. To call sooner prior to next visit it any questions/concerns arise. 02/20/2024 Annual physical exam (ICD-10 - Z00.00) 49 year old F, recent dx of breast ca on Tamoxifen. # Hx of breast ca. Pathology during breast reduction showed malignancy. Goes for mammo q6 m. On Tamoxifen for 5 years (has three more years). Reports hot flashes # Restless leg syndrome. Check B12/folate, iron studies # Weight gain: ? Due to Celexa 40 mg po daily, change to Prozac 10 mg, increase to 20 mg po daily. # Screening. Due for colonoscopy # Labs. Encouraged to do, fasting # Vaccines. Tdap given Physical Women Patient seen and examined. Comprehensive discussion was done on the following.1. Nutrition: It is important to follow a healthy diet based on lots of vegetables and legumes and good fat. Avoid processed food and processed carbohydrates. Learn to prepare your own meals. Learn to read labels and avoid high fructose corn syrup, processed chemicals added to increase shelf life and preprepared meals. Avoid fast foods. Learn to eat slowly and plan meals for a week. Try to count calories and be mindful off daily calorie intake. Get into the habit of keeping an eye on your weight by using an appropriate scale. Learn to log exercise and discussed fitness Apps like Ibercheck which can help keep log off calories taken versus calories burned. Local food should be preferred. Discussed Dirty Dozen Versus Clean Fifteen. Discussed healthy supplements like fish oil, Tumeric, Curcumin, Melatonin, Resveratrol, Probiotics, Vitamin-D, Alpha-Lipoic acid, Vitamin-D and coconut oil.2. It is important to exercise regularly. Is a good habit to walk at least 30-45 minutes a day. Gentle weightlifting with standard precautions to protect the back. Finding activity like cycling or hiking and get into the habit of engaging in it. Stretching before and after the exercises important. It is also important to contact me if there are any problems like shortness of breath, chest pain, back pain and joint or muscle pain associated with the exercise.3. Discussed age appropriate screening guidelines. Colonoscopy needs to start at age 50 with stool for occult blood as appropriate. There is a new test that can test for genetic abnormalities in the stool sample. This would not replace a colonoscopy but could be used as a screening tool for patients who do not want a colonoscopy. We discussed the importance of early detection of colon cancer.4. Discussed current guidelines with respect to breast examination, mammogram and pap smear for early detection of breast and cervical cancer. Patient advised to follow up with these appointments.5. Discussed safe driving and no use of smart phone while driving6. Age-appropriate immunizations were discussed. A tetanus booster is needed every 10 years. Flu vaccine is recommended every year just before the start of the flu season. Shingles vaccine is recommended after age 50 but not all insurances cover it.Pneumonia vaccine is given after age 65 unless there are certain comorbidities for which it is started earlier.7. Diagnostic labs were discussed. These could include CBC CMP and lipids with fasting blood glucose and insulin levels. Vitamin D and hemoglobin A1c testing might be appropriate. Case discussed with collaborating physician Lily Barkley who reviewed the assessment and plan. Chart, medications, labs, vital signs reviewed. Dictation was accomplished with the use of [employer] voice recognition software, prone to medical misidentifications and grammatical errors. This is unintentional and the practitioner does try to identify and correct these, but some could still be present. Please do not hesitate to contact practitioner for clarification. All questions answered to patients satisfaction. Patient verbalized understanding of diagnosis and treatments explained. To call sooner prior to next visit it any questions/concerns arise. 02/20/2024 History of breast cancer (ICD-10 - Z85.3) 49 year old F, recent dx of breast ca on Tamoxifen. # Hx of breast ca. Pathology during breast reduction showed malignancy. Goes for mammo q6 m. On Tamoxifen for 5 years (has three more years). Reports hot flashes # Restless leg syndrome. Check B12/folate, iron studies # Weight gain: ? Due to Celexa 40 mg po daily, change to Prozac 10 mg, increase to 20 mg po daily. # Screening. Due for colonoscopy # Labs. Encouraged to do, fasting # Vaccines. Tdap given Physical Women Patient seen and examined. Comprehensive discussion was done on the following.1. Nutrition: It is important to follow a healthy diet based on lots of vegetables and legumes and good fat. Avoid processed food and processed carbohydrates. Learn to prepare your own meals. Learn to read labels and avoid high fructose corn syrup, processed chemicals added to increase shelf life and preprepared meals. Avoid fast foods. Learn to eat slowly and plan meals for a week. Try to count calories and be mindful off daily calorie intake. Get into the habit of keeping an eye on your weight by using an appropriate scale. Learn to log exercise and discussed fitness Apps like Ibercheck which can help keep log off calories taken versus calories burned. Local food should be preferred. Discussed Dirty Dozen Versus Clean Fifteen. Discussed healthy supplements like fish oil, Tumeric, Curcumin, Melatonin, Resveratrol, Probiotics, Vitamin-D, Alpha-Lipoic acid, Vitamin-D and coconut oil.2. It is important to exercise regularly. Is a good habit to walk at least 30-45 minutes a day. Gentle weightlifting with standard precautions to protect the back. Finding activity like cycling or hiking and get into the habit of engaging in it. Stretching before and after the exercises important. It is also important to contact me if there are any problems like shortness of breath, chest pain, back pain and joint or muscle pain associated with the exercise.3. Discussed age appropriate screening guidelines. Colonoscopy needs to start at age 50 with stool for occult blood as appropriate. There is a new test that can test for genetic abnormalities in the stool sample. This would not replace a colonoscopy but could be used as a screening tool for patients who do not want a colonoscopy. We discussed the importance of early detection of colon cancer.4. Discussed current guidelines with respect to breast examination, mammogram and pap smear for early detection of breast and cervical cancer. Patient advised to follow up with these appointments.5. Discussed safe driving and no use of smart phone while driving6. Age-appropriate immunizations were discussed. A tetanus booster is needed every 10 years. Flu vaccine is recommended every year just before the start of the flu season. Shingles vaccine is recommended after age 50 but not all insurances cover it.Pneumonia vaccine is given after age 65 unless there are certain comorbidities for which it is started earlier.7. Diagnostic labs were discussed. These could include CBC CMP and lipids with fasting blood glucose and insulin levels. Vitamin D and hemoglobin A1c testing might be appropriate. Case discussed with collaborating physician Lily Barkley who reviewed the assessment and plan. Chart, medications, labs, vital signs reviewed. Dictation was accomplished with the use of [employer] voice recognition software, prone to medical misidentifications and grammatical errors. This is unintentional and the practitioner does try to identify and correct these, but some could still be present. Please do not hesitate to contact practitioner for clarification. All questions answered to patients satisfaction. Patient verbalized understanding of diagnosis and treatments explained. To call sooner prior to next visit it any questions/concerns arise. 10/11/2023 Liver cyst (ICD-10 - K76.89) 10/15/2023 Elevated liver enzym es (ICD-10 - R74.8) 02/20/2024 Adult general medica l exam (ICD-10 - Z00.00) 03/31/2024 Overweight (ICD-10 - E66.3) 49 year old F, recent dx of breast ca on Tamoxifen here for weight follow up # Overweight 03/31/25: BMI 25.9, Weight 145. Will continue for 1 mor [facility]. Tolerating well with minimal side effects. Gained muscle # Hx of breast ca. Pathology during breast reduction showed malignancy. Goes for mammo q6 m. On Tamoxifen for 5 years (has three more years). Reports hot flashes # Restless leg syndrome. Check B12/folate, iron studies # Weight gain: ? Due to Celexa 40 mg po daily, change to Prozac 10 mg, increase to 20 mg po daily. # Screening. Due for colonoscopy # Labs. Encouraged to do, fasting Case discussed with collaborating physician Lily Barkley who reviewed the assessment and plan. Chart, medications, labs, vital signs reviewed. Dictation was accomplished with the use of [employer] voice recognition software, prone to medical misidentifications and grammatical errors. This is unintentional and the practitioner does try to identify and correct these, but some could still be present. Please do not hesitate to contact practitioner for clarification. All questions answered to patients satisfaction. Patient verbalized understanding of diagnosis and treatments explained. To call sooner prior to next visit it any questions/concerns arise. 03/31/2024 BMI 25.0-25.9,adult (ICD-10 - Z68.25) 49 year old F, recent dx of breast ca on Tamoxifen here for weight follow up # Overweight 03/31/25: BMI 25.9, Weight 145. Will continue for 1 mor [facility]. Tolerating well with minimal side effects. Gained muscle # Hx of breast ca. Pathology during breast reduction showed malignancy. Goes for mammo q6 m. On Tamoxifen for 5 years (has three more years). Reports hot flashes # Restless leg syndrome. Check B12/folate, iron studies # Weight gain: ? Due to Celexa 40 mg po daily, change to Prozac 10 mg, increase to 20 mg po daily. # Screening. Due for colonoscopy # Labs. Encouraged to do, fasting Case discussed with collaborating physician Lily Barkley who reviewed the assessment and plan. Chart, medications, labs, vital signs reviewed. Dictation was accomplished with the use of [employer] voice recognition software, prone to medical misidentifications and grammatical errors. This is unintentional and the practitioner does try to identify and correct these, but some could still be present. Please do not hesitate to contact practitioner for clarification. All questions answered to patients satisfaction. Patient verbalized understanding of diagnosis and treatments explained. To call sooner prior to next visit it any questions/concerns arise. 06/17/2024 Hypertriglyceridemia (ICD-10 - E78.1) Sofia is a 49-year-old female present today for weight management follow-up. 06/17/2024: Weight: 136.9 pounds, BMI: 24.25. Patient currently on semaglutide 0.5 mg weekly injections. Has been without injections for the past 2 weeks as she was on vacation for the past week and a half. States she still has appetite suppression. Denies any side effects. Discussed seca scan - 1 lb of fat loss, 5 lbs of muscle loss. Discussed the importance of increasing protein throughout the day as well as routine strength training in order to maintain muscle or increase muscle. Patient is approaching her goal weight of 133 pounds and normal BMI. Discussed with patient that we can begin considering tapering off on medication. Plan for patient to receive her fourth injection today of the semaglutide 0.5 mg. Plan for patient to continue for the next month. Plan to follow-up in 4 weeks. If patient is at goal weight by next visit, will consider biweekly injections. #Hypertriglyceridem ia: Triglyceride elevated level of 156. Recommended [id number] fish oil supplement. Will discuss with primary care visit. Total time spent is was 30 minutes, with more face to face time This medication is prescribed by or in consultation with a board certified obesity and weight management physician Dr. Jhonny Barkley The patient will continue exercise regimen with an emphasis on improving/increasin g steps to at least 6,000-10,000 steps per day. Increasing cardio and strength training exercises as tolerated to improve weight loss and work on building muscle mass. Patient is committed to smarter eating with calorie counting and mindful eating. Limiting processed foods and carbohydrates and increasing leafy greens and lean proteins as well as fruits into their diet. Patient was counseled on the importance of eating local, organic food when possible. Patient has been counseled regarding effects of GLP/GIP-1 agonists and other FDA approved weight loss medications with regards to a multifactorial approach of weight loss as mentioned above and that the medication alone will not be sufficient to meet patients goals. We discussed holistic medication approach with emphasis on lifestyle modification. Discussed obesity as it increases risk of diabetes, cardiovascular disease, and/or organ damage. We spent a lot of time discussing the relationship between food, exercise, sleep, mental health, and obesity. We discussed the importance of having SECAs done every visit and having accountability done during these visits. That the scale is done to monitor not only weight loss but the body composition during medication management and healthy lifestyle changes. We discussed that if the patient is unable at times to financially afford this scale that we would rather waive the fee and have the scale done than have the patient not have the scale obtained. Will follow up with the patient in 4 weeks time to monitor weight loss. total time was 30 min, greater than 50 % of time was spent on care coordination Case discussed with collaborating physician Lily Barkley who reviewed the assessment and plan. Chart, medications, labs, vital signs reviewed. Dictation was accomplished with the use of [employer] voice recognition software, prone to medical misidentifications and grammatical errors. This is unintentional and the practitioner does try to identify and correct these, but some could still be present. Please do not hesitate to contact practitioner for clarification. All questions answered to patients satisfaction. Patient verbalized understanding of diagnosis and treatments explained. To call sooner prior to next visit it any questions/concerns arise. 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 Will continue for 1 mor [facility]. Tolerating well with minimal side effects. Gained muscle # Hx of breast ca. Pathology during breast reduction showed malignancy. Goes for mammo q6 m. On Tamoxifen for 5 years (has three more years). Reports hot flashes # Restless leg syndrome. Check B12/folate, iron studies # Weight gain: ? Due to Celexa 40 mg po daily, change to Prozac 10 mg, increase to 20 mg po daily. # Screening. Due for colonoscopy # Labs. Encouraged to do, fasting Case discussed with collaborating physician Lily Barkley who reviewed the assessment and plan. Chart, medications, labs, vital signs reviewed. Dictation was accomplished with the use of [employer] voice recognition software, prone to medical misidentifications and grammatical errors. This is unintentional and the practitioner does try to identify and correct these, but some could still be present. Please do not hesitate to contact practitioner for clarification. All questions answered to patients satisfaction. Patient verbalized understanding of diagnosis and treatments explained. To call sooner prior to next visit it any questions/concerns arise. 02/20/2024 Hyperlipidemia, unspecified (ICD-10 - E78.5) 49 year old F, recent dx of breast ca on Tamoxifen. # Hx of breast ca. Pathology during breast reduction showed malignancy. Goes for mammo q6 m. On Tamoxifen for 5 years (has three more years). Reports hot flashes # Restless leg syndrome. Check B12/folate, iron studies # Weight gain: ? Due to Celexa 40 mg po daily, change to Prozac 10 mg, increase to 20 mg po daily. # Screening. Due for colonoscopy # Labs. Encouraged to do, fasting # Vaccines. Tdap given Physical Women Patient seen and examined. Comprehensive discussion was done on the following.1. Nutrition: It is important to follow a healthy diet based on lots of vegetables and legumes and good fat. Avoid processed food and processed carbohydrates. Learn to prepare your own meals. Learn to read labels and avoid high fructose corn syrup, processed chemicals added to increase shelf life and preprepared meals. Avoid fast foods. Learn to eat slowly and plan meals for a week. Try to count calories and be mindful off daily calorie intake. Get into the habit of keeping an eye on your weight by using an appropriate scale. Learn to log exercise and discussed fitness Apps like Ibercheck which can help keep log off calories taken versus calories burned. Local food should be preferred. Discussed Dirty Dozen Versus Clean Fifteen. Discussed healthy supplements like fish oil, Tumeric, Curcumin, Melatonin, Resveratrol, Probiotics, Vitamin-D, Alpha-Lipoic acid, Vitamin-D and coconut oil.2. It is important to exercise regularly. Is a good habit to walk at least 30-45 minutes a day. Gentle weightlifting with standard precautions to protect the back. Finding activity like cycling or hiking and get into the habit of engaging in it. Stretching before and after the exercises important. It is also important to contact me if there are any problems like shortness of breath, chest pain, back pain and joint or muscle pain associated with the exercise.3. Discussed age appropriate screening guidelines. Colonoscopy needs to start at age 50 with stool for occult blood as appropriate. There is a new test that can test for genetic abnormalities in the stool sample. This would not replace a colonoscopy but could be used as a screening tool for patients who do not want a colonoscopy. We discussed the importance of early detection of colon cancer.4. Discussed current guidelines with respect to breast examination, mammogram and pap smear for early detection of breast and cervical cancer. Patient advised to follow up with these appointments.5. Discussed safe driving and no use of smart phone while driving6. Age-appropriate immunizations were discussed. A tetanus booster is needed every 10 years. Flu vaccine is recommended every year just before the start of the flu season. Shingles vaccine is recommended after age 50 but not all insurances cover it.Pneumonia vaccine is given after age 65 unless there are certain comorbidities for which it is started earlier.7. Diagnostic labs were discussed. These could include CBC CMP and lipids with fasting blood glucose and insulin levels. Vitamin D and hemoglobin A1c testing might be appropriate. Case discussed with collaborating physician Lily Barkley who reviewed the assessment and plan. Chart, medications, labs, vital signs reviewed. Dictation was accomplished with the use of [employer] voice recognition software, prone to medical misidentifications and grammatical errors. This is unintentional and the practitioner does try to identify and correct these, but some could still be present. Please do not hesitate to contact practitioner for clarification. All questions answered to patients satisfaction. Patient verbalized understanding of diagnosis and treatments explained. To call sooner prior to next visit it any questions/concerns arise. 10/03/2023 Asthma (ICD-10 - J45.909) #Chronic cough with asthma. Patient reports that she has been ill with URI symptoms since the early fall. She is due to have a chest CT without contrast next Saturday for further evaluation, ordered by her manager of security. Will check Legionella streptococcal and mycoplasma antigen to ensure that there is no other identifiable causes. If CT chest clear and IgM antigen neg, then refer back to ENT, given it is mostly upper airway sx. Patient has been treated off-and-on with prednisone, doxycycline and azithromycin with minimal relief of her symptoms. She was started on Spiriva with mild improvement. Patient still has diminished breath sounds in the bilateral upper lobes. It is encouraged to take Mucinex, nasal saline, and Flonase, which she has been doing. She is training for a half marathon in October. # Breast cancer. On tamoxifen since 2022, to be done in 2027 # Recent basal cell removal. healing well. tegaderm over area prn (on bra line) Case discussed with collaborating physician Lily Barkley who reviewed the assessment and plan. Chart, medications, labs, vital signs reviewed. Dictation was accomplished with the use of [employer] voice recognition software, prone to medical misidentifications and grammatical errors. This is unintentional and the practitioner does try to identify and correct these, but some could still be present. Please do not hesitate to contact practitioner for clarification. All questions answered to patients satisfaction. Patient verbalized understanding of diagnosis and treatments explained. To call sooner prior to next visit it any questions/concerns arise. 10/03/2023 History of breast cancer (ICD-10 - Z85.3) #Chronic cough with asthma. Patient reports that she has been ill with URI symptoms since the early fall. She is due to have a chest CT without contrast next Saturday for further evaluation, ordered by her manager of security. Will check Legionella streptococcal and mycoplasma antigen to ensure that there is no other identifiable causes. If CT chest clear and IgM antigen neg, then refer back to ENT, given it is mostly upper airway sx. Patient has been treated off-and-on with prednisone, doxycycline and azithromycin with minimal relief of her symptoms. She was started on Spiriva with mild improvement. Patient still has diminished breath sounds in the bilateral upper lobes. It is encouraged to take Mucinex, nasal saline, and Flonase, which she has been doing. She is training for a half marathon in October. # Breast cancer. On tamoxifen since 2022, to be done in 2027 # Recent basal cell removal. healing well. tegaderm over area prn (on bra line) Case discussed with collaborating physician Lily Barkley who reviewed the assessment and plan. Chart, medications, labs, vital signs reviewed. Dictation was accomplished with the use of [employer] voice recognition software, prone to medical misidentifications and grammatical errors. This is unintentional and the practitioner does try to identify and correct these, but some could still be present. Please do not hesitate to contact practitioner for clarification. All questions answered to patients satisfaction. Patient verbalized understanding of diagnosis and treatments explained. To call sooner prior to next visit it any questions/concerns arise. 02/20/2024 Vitamin D deficiency , unspecified (ICD-10 - E55.9) 49 year old F, recent dx of breast ca on Tamoxifen. # Hx of breast ca. Pathology during breast reduction showed malignancy. Goes for mammo q6 m. On Tamoxifen for 5 years (has three more years). Reports hot flashes # Restless leg syndrome. Check B12/folate, iron studies # Weight gain: ? Due to Celexa 40 mg po daily, change to Prozac 10 mg, increase to 20 mg po daily. # Screening. Due for colonoscopy # Labs. Encouraged to do, fasting # Vaccines. Tdap given Physical Women Patient seen and examined. Comprehensive discussion was done on the following.1. Nutrition: It is important to follow a healthy diet based on lots of vegetables and legumes and good fat. Avoid processed food and processed carbohydrates. Learn to prepare your own meals. Learn to read labels and avoid high fructose corn syrup, processed chemicals added to increase shelf life and preprepared meals. Avoid fast foods. Learn to eat slowly and plan meals for a week. Try to count calories and be mindful off daily calorie intake. Get into the habit of keeping an eye on your weight by using an appropriate scale. Learn to log exercise and discussed fitness Apps like Ibercheck which can help keep log off calories taken versus calories burned. Local food should be preferred. Discussed Dirty Dozen Versus Clean Fifteen. Discussed healthy supplements like fish oil, Tumeric, Curcumin, Melatonin, Resveratrol, Probiotics, Vitamin-D, Alpha-Lipoic acid, Vitamin-D and coconut oil.2. It is important to exercise regularly. Is a good habit to walk at least 30-45 minutes a day. Gentle weightlifting with standard precautions to protect the back. Finding activity like cycling or hiking and get into the habit of engaging in it. Stretching before and after the exercises important. It is also important to contact me if there are any problems like shortness of breath, chest pain, back pain and joint or muscle pain associated with the exercise.3. Discussed age appropriate screening guidelines. Colonoscopy needs to start at age 50 with stool for occult blood as appropriate. There is a new test that can test for genetic abnormalities in the stool sample. This would not replace a colonoscopy but could be used as a screening tool for patients who do not want a colonoscopy. We discussed the importance of early detection of colon cancer.4. Discussed current guidelines with respect to breast examination, mammogram and pap smear for early detection of breast and cervical cancer. Patient advised to follow up with these appointments.5. Discussed safe driving and no use of smart phone while driving6. Age-appropriate immunizations were discussed. A tetanus booster is needed every 10 years. Flu vaccine is recommended every year just before the start of the flu season. Shingles vaccine is recommended after age 50 but not all insurances cover it.Pneumonia vaccine is given after age 65 unless there are certain comorbidities for which it is started earlier.7. Diagnostic labs were discussed. These could include CBC CMP and lipids with fasting blood glucose and insulin levels. Vitamin D and hemoglobin A1c testing might be appropriate. Case discussed with collaborating physician Lily Barkley who reviewed the assessment and plan. Chart, medications, labs, vital signs reviewed. Dictation was accomplished with the use of Novadiol voice recognition software, prone to medical misidentifications and grammatical errors. This is unintentional and the practitioner does try to identify and correct these, but some could still be present. Please do not hesitate to contact practitioner for clarification. All questions answered to patients satisfaction. Patient verbalized understanding of diagnosis and treatments explained. To call sooner prior to next visit it any questions/concerns arise. 03/31/2024 Hyperlipidemia, unspecified (ICD-10 - E78.5) 49 year old F, recent dx of breast ca on Tamoxifen here for weight follow up # Overweight 03/31/25: BMI 25.9, Weight 145. Will continue for 1 mor [facility]. Tolerating well with minimal side effects. Gained muscle # Hx of breast ca. Pathology during breast reduction showed malignancy. Goes for mammo q6 m. On Tamoxifen for 5 years (has three more years). Reports hot flashes # Restless leg syndrome. Check B12/folate, iron studies # Weight gain: ? Due to Celexa 40 mg po daily, change to Prozac 10 mg, increase to 20 mg po daily. # Screening. Due for colonoscopy # Labs. Encouraged to do, fasting Case discussed with collaborating physician Lily Barkley who reviewed the assessment and plan. Chart, medications, labs, vital signs reviewed. Dictation was accomplished with the use of Nov[employer] voice recognition software, prone to medical misidentifications and grammatical errors. This is unintentional and the practitioner does try to identify and correct these, but some could still be present. Please do not hesitate to contact practitioner for clarification. All questions answered to patients satisfaction. Patient verbalized understanding of diagnosis and treatments explained. To call sooner prior to next visit it any questions/concerns arise. 02/20/2024 Vitamin D deficiency (ICD-10 - E55.9) 02/20/2024 Acquired hypothyroidism (ICD-10 - E03.9) 02/20/2024 Screening for thyroi d disorder (ICD-10 - Z13.29) 49 year old F, recent dx of breast ca on Tamoxifen. # Hx of breast ca. Pathology during breast reduction showed malignancy. Goes for mammo q6 m. On Tamoxifen for 5 years (has three more years). Reports hot flashes # Restless leg syndrome. Check B12/folate, iron studies # Weight gain: ? Due to Celexa 40 mg po daily, change to Prozac 10 mg, increase to 20 mg po daily. # Screening. Due for colonoscopy # Labs. Encouraged to do, fasting # Vaccines. Tdap given Physical Women Patient seen and examined. Comprehensive discussion was done on the following.1. Nutrition: It is important to follow a healthy diet based on lots of vegetables and legumes and good fat. Avoid processed food and processed carbohydrates. Learn to prepare your own meals. Learn to read labels and avoid high fructose corn syrup, processed chemicals added to increase shelf life and preprepared meals. Avoid fast foods. Learn to eat slowly and plan meals for a week. Try to count calories and be mindful off daily calorie intake. Get into the habit of keeping an eye on your weight by using an appropriate scale. Learn to log exercise and discussed fitness Apps like Ibercheck which can help keep log off calories taken versus calories burned. Local food should be preferred. Discussed Dirty Dozen Versus Clean Fifteen. Discussed healthy supplements like fish oil, Tumeric, Curcumin, Melatonin, Resveratrol, Probiotics, Vitamin-D, Alpha-Lipoic acid, Vitamin-D and coconut oil.2. It is important to exercise regularly. Is a good habit to walk at least 30-45 minutes a day. Gentle weightlifting with standard precautions to protect the back. Finding activity like cycling or hiking and get into the habit of engaging in it. Stretching before and after the exercises important. It is also important to contact me if there are any problems like shortness of breath, chest pain, back pain and joint or muscle pain associated with the exercise.3. Discussed age appropriate screening guidelines. Colonoscopy needs to start at age 50 with stool for occult blood as appropriate. There is a new test that can test for genetic abnormalities in the stool sample. This would not replace a colonoscopy but could be used as a screening tool for patients who do not want a colonoscopy. We discussed the importance of early detection of colon cancer.4. Discussed current guidelines with respect to breast examination, mammogram and pap smear for early detection of breast and cervical cancer. Patient advised to follow up with these appointments.5. Discussed safe driving and no use of smart phone while driving6. Age-appropriate immunizations were discussed. A tetanus booster is needed every 10 years. Flu vaccine is recommended every year just before the start of the flu season. Shingles vaccine is recommended after age 50 but not all insurances cover it.Pneumonia vaccine is given after age 65 unless there are certain comorbidities for which it is started earlier.7. Diagnostic labs were discussed. These could include CBC CMP and lipids with fasting blood glucose and insulin levels. Vitamin D and hemoglobin A1c testing might be appropriate. Case discussed with collaborating physician Lily Barkley who reviewed the assessment and plan. Chart, medications, labs, vital signs reviewed. Dictation was accomplished with the use of Novadiol voice recognition software, prone to medical misidentifications and grammatical errors. This is unintentional and the practitioner does try to identify and correct these, but some could still be present. Please do not hesitate to contact practitioner for clarification. All questions answered to patients satisfaction. Patient verbalized understanding of diagnosis and treatments explained. To call sooner prior to next visit it any questions/concerns arise. 02/20/2024 Restless legs syndro me (RLS) (ICD-10 - G25.81) 49 year old F, recent dx of breast ca on Tamoxifen. # Hx of breast ca. Pathology during breast reduction showed malignancy. Goes for mammo q6 m. On Tamoxifen for 5 years (has three more years). Reports hot flashes # Restless leg syndrome. Check B12/folate, iron studies # Weight gain: ? Due to Celexa 40 mg po daily, change to Prozac 10 mg, increase to 20 mg po daily. # Screening. Due for colonoscopy # Labs. Encouraged to do, fasting # Vaccines. Tdap given Physical Women Patient seen and examined. Comprehensive discussion was done on the following.1. Nutrition: It is important to follow a healthy diet based on lots of vegetables and legumes and good fat. Avoid processed food and processed carbohydrates. Learn to prepare your own meals. Learn to read labels and avoid high fructose corn syrup, processed chemicals added to increase shelf life and preprepared meals. Avoid fast foods. Learn to eat slowly and plan meals for a week. Try to count calories and be mindful off daily calorie intake. Get into the habit of keeping an eye on your weight by using an appropriate scale. Learn to log exercise and discussed fitness Apps like Ibercheck which can help keep log off calories taken versus calories burned. Local food should be preferred. Discussed Dirty Dozen Versus Clean Fifteen. Discussed healthy supplements like fish oil, Tumeric, Curcumin, Melatonin, Resveratrol, Probiotics, Vitamin-D, Alpha-Lipoic acid, Vitamin-D and coconut oil.2. It is important to exercise regularly. Is a good habit to walk at least 30-45 minutes a day. Gentle weightlifting with standard precautions to protect the back. Finding activity like cycling or hiking and get into the habit of engaging in it. Stretching before and after the exercises important. It is also important to contact me if there are any problems like shortness of breath, chest pain, back pain and joint or muscle pain associated with the exercise.3. Discussed age appropriate screening guidelines. Colonoscopy needs to start at age 50 with stool for occult blood as appropriate. There is a new test that can test for genetic abnormalities in the stool sample. This would not replace a colonoscopy but could be used as a screening tool for patients who do not want a colonoscopy. We discussed the importance of early detection of colon cancer.4. Discussed current guidelines with respect to breast examination, mammogram and pap smear for early detection of breast and cervical cancer. Patient advised to follow up with these appointments.5. Discussed safe driving and no use of smart phone while driving6. Age-appropriate immunizations were discussed. A tetanus booster is needed every 10 years. Flu vaccine is recommended every year just before the start of the flu season. Shingles vaccine is recommended after age 50 but not all insurances cover it.Pneumonia vaccine is given after age 65 unless there are certain comorbidities for which it is started earlier.7. Diagnostic labs were discussed. These could include CBC CMP and lipids with fasting blood glucose and insulin levels. Vitamin D and hemoglobin A1c testing might be appropriate. Case discussed with collaborating physician Lily Barkley who reviewed the assessment and plan. Chart, medications, labs, vital signs reviewed. Dictation was accomplished with the use of Novadiol voice recognition software, prone to medical misidentifications and grammatical errors. This is unintentional and the practitioner does try to identify and correct these, but some could still be present. Please do not hesitate to contact practitioner for clarification. All questions answered to patients satisfaction. Patient verbalized understanding of diagnosis and treatments explained. To call sooner prior to next visit it any questions/concerns arise. 02/20/2024 Diabetes mellitus screening (ICD-10 - Z13.1) 02/20/2024 Vitamin B12 deficien cy anemia, unspecified (ICD-10 - D51.9) 02/20/2024 Pain (ICD-10 - R52) PLAN OF TREATMENT Pending Test Test Name Order Date X ray : Hip, right 02/20/2024 X ray : Pelvis 02/20/2024 X ray : Spines, lumbar 2 views 4 Vitamin D, 25-Hydroxy 10/17/2018 Mycoplasma pneu. IgG/IgM Abs 10/03/2023 BUN, Creatinine 07/30/2024 25OH VITAMIN D 09/23/2020 CBC (COMPLETE BLOOD COUNT) 09/23/2020 CBC (COMPLETE BLOOD COUNT) 10/17/2018 CBC (COMPLETE BLOOD COUNT) 09/26/2021 CBC (COMPLETE BLOOD COUNT) 03/09/2019 COMPREHENSIVE METABOLIC PANEL 09/26/2021 COMPREHENSIVE METABOLIC PANEL 10/17/2018 COMPREHENSIVE METABOLIC PANEL 09/23/2020 HEMOGLOBIN A1C 10/17/2018 INSULIN 10/17/2018 LEGIONELLA ANTIGEN 10/03/2023 LIPID PANEL 09/23/2020 LIPID PANEL 10/17/2018 LIPID PANEL 09/26/2021 STREP PNEUMONIAE ANTIGEN, URINE 10/03/19 TSH WITH REFLEX TO FT4 10/17/2018 URINALYSIS W/REFLEX CULTURE 09/26/2021 Transferrin 02/11/2023 LIPID PANEL, STANDARD 02/11/2023 LIPID PANEL, STANDARD 02/20/2024 COMPREHENSIVE METABOLIC PANEL 02/11/2023 COMPREHENSIVE METABOLIC PANEL 02/20/2024 IRON AND TOTAL IRON BINDING CAPACITY 05/2023 CBC (INCLUDES DIFF/PLT) 02/20/2024 CBC (INCLUDES DIFF/PLT) 02/11/2023 URINALYSIS, COMPLETE 02/20/2024 HEMOGLOBIN A1c 02/20/2024 HEMOGLOBIN A1c 02/11/2023 VITAMIN B12 02/11/2023 VITAMIN B12 02/20/2024 FERRITIN 02/11/2023 FOLATE, RBC 02/11/2023 TSH 02/11/2023 TSH 02/20/2024 VITAMIN D,25-OH,TOTAL,IA 02/11/2023 VITAMIN D,25-OH,TOTAL,IA 02/20/2024 LYME AB SCREEN 04/25/2023 Next Appt Details Provider Name:JHONNY BARKLEY, 08/06/2024 03:15:00 PM, [address], [place], [address], Provider Name:JHONNY BARKLEY, 08/13/2024 03:15:00 PM, [address], [place], [address], Provider Name:DEISI YAN, 08/17/2024 03:15:00 PM, [address], [place], [address], Insurance Providers Payer Name Payer Address Payer Phone Subscriber Number Group Number Insured Name Patient Relationship to Insured Coverage Start Date Coverage End Date [facility] [address] [place] [address] [id number] [place] Self - patient is the insured MEDICATIONS ADMINISTERED Medication Instructions Date of Administration Dosage Notes MICC B12 INJECTION 12/29/2020 1 mL LOT [id number] MICC B12 INJECTION 01/12/2021 1 mL lot [id number] MICC B12 INJECTION 01/26/2021 [id number] MICC B12 INJECTION 02/08/2021 lot# [id number] MICC B12 INJECTION 02/23/2021 Lot # [id number] MICC B12 INJECTION 03/10/2021 1 mL [id number] MICC B12 INJECTION 03/23/2021 Lot # [id number] MICC B12 INJECTION 04/28/2021 1 mL [id number] MICC B12 INJECTION 02/20/2024 1 mg #[id number] Semaglutide 02/27/2024 0.25 mg Semaglutide 03/04/2024 0.25 mg Semaglutide 03/12/2024 0.25 mg Semaglutide 03/19/2024 .25 mg Semaglutide 03/26/2024 0.25 mg Semaglutide 03/31/2024 0.25 mL #[id number] Semaglutide 04/07/2024 0.25 mg Semaglutide 04/15/2024 0.25 mg Semaglutide 04/22/2024 0.25 mg Semaglutide 04/29/2024 0.25 mg Semaglutide 05/20/2024 0.5 mg Semaglutide 05/28/2024 0.5 mg Semaglutide 06/03/2024 0.5 mg Semaglutide 06/17/2024 .5 mg Semaglutide 06/25/2024 0.5 mg Semaglutide 06/30/2024 0.5 mg Semaglutide 07/09/2024 0.5 mg Semaglutide 07/17/2024 0.5 mg Semaglutide 07/22/2024 0.5 mg MEDICAL (GENERAL) HISTORY Medical History History ICD Code Seasonal allergies J30.2 Asthma J45.909 Headache R51 History of breast cancer Z85.3 Rosacea, unspecified L71.9 Anxiety F41.9 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
[2024-07-30 16:12] LABS: Anion Gap 12 (12-20); Blood Urea Nitrogen 14 mg/dL (9-16); Carbon Dioxide 24 mmol/L (22-29); Chloride 110 mmol/L (96-108); Estimated Glomerular Filt Rate > 60; Glucose Random 83 mg/dL (60-115); Sodium 142 mmol/L (135-145)
== END 2024-07-30 15:06 | disposition home or self-care (01) ==
LOC: HO.LAB 15:05
PROVIDERS: PCP Internal Medicine; Visit Provider Internal Medicine Pulmonary Disease
DX: D84.89 Other immunodeficiencies (principal)
CPT/HCPCS: 36415; 80048

== ENCOUNTER → 2024-09-14 15:51 | Outpatient (REF) | payer OTHER, SELFPAY ==
--- OUTSIDE RECORDS SUMMARY | 2024-09-14 16:32 | XMS_ITS | Referral Summary ---
Author Organization [facility] Address [address] [place] [address] Care Team Providers Care Stemming Machine Operator Name Role Phone Phani Barkley MD Primary Care Provider Allergies Active Allergy Reactions Criticality Noted Date Comments Aspirin Hives,Itching 10/05/2021 hives Atropine Unknown 10/05/2021 Gluten Fatigue,Flushing,He adache,Itching,Join t pain,Migraine,Muscl e Pain,Rash 10/05/2021 Sulfamethizole Unknown 10/05/2021 difficulty breath sweling Sulfamethoxazole-Trimetho prim Hives,Itching,Photo sensitivity rash,Rash,Swelling High 10/05/2021 Medications Symbicort 160-4.5 mcg/actuation inhaler Inhale 2 puffs by mouth 2 times a day. 2 Active metroNIDAZOLE (METROCREAM) 0.75 % cream Apply topically to the affected area. 2 Active buPROPion XL (WELLBUTRIN XL) 150 mg tablet Take 150 mg by mouth 2 times a day. 1 Active meloxicam (MOBIC) 7.5 mg tablet Take 7.5 mg by mouth once a day. 2 Active valACYclovir (VALTREX) 500 mg tablet Take 500 mg by mouth once a day. 1 Active doxycycline (PERIOSTAT) 20 mg tablet Take 20 mg by mouth 2 times a day. 1 Active levalbuterol (XOPENEX HFA) 45 mcg/actuation inhaler Inhale 2 puffs by mouth every 4 hours as needed. 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 Polyarthralgia 10/05/2021 Other fatigue 10/05/2021 Social History Tobacco Use Types Packs/Day Years Used Date Smoking Tobacco: Never Smokeless Tobacco: Never Alcohol Use Standard Drinks/Week Comments Not Currently 0 (1 standard drink = 0.6 oz pur e alcohol) rare Comments Unknown Sex and Gender Information Value Date Recorded Sex Assigned at Female 09/18/2021 6:29 PM EST Legal Sex Female 9:23 AM EST Gender Identity Female 09/18/2021 6:29 PM EST Sexual Orientation Straight 09/18/2021 6: 29 PM EST Last Filed Vital Signs Vital Sign Reading Time Taken Comments Blood Pressure 154/93 10/05/2021 8:47 AM EST Pulse 62 10/05/2021 8:47 AM EST Temperature 36.8 ??C (98.3 ??F) 10/05/2021 8:47 AM ES T Respiratory Rate - - Oxygen Saturation - - Inhaled Oxygen Concentration - - Weight 63.9 kg (140 lb 12.8 oz) 10/05/2021 8:47 AM EST Height - - Body Mass Index - - Plan of Treatment Not on file Insurance [facility] Care Teams Stemming Machine Operator Relationship Specialty Start Date End Date Phani Barkley MD [address] [facility] [facility] [address] [place] [address] PCP - General 09/14/21
--- OUTSIDE RECORDS SUMMARY | 2024-09-14 16:32 | XMS_ITS | Patient Health Record ---
Author Organization 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
--- OUTSIDE RECORDS SUMMARY | 2024-09-14 16:32 | XMS_ITS | Clinical Summary ---
Author Organization [facility] Address [address] [place] [address] Care Team Providers Care Planer Chain Offbearer Name Role Phone Unavailable Primary Care Provider Unavailabl e Encounters Date Type Department Care Team Description 07/09/2024 Telephone [facility] [place] [address] [place] [address], [address] [place] [phone] Eugene Taveras MD Results 07/09/2024 Scanned Document [facility] [place] [address] [place] [phone] Eugene Taveras MD 07/03/2024 Orders Only [facility] [address], [address] [place] [phone] Eugene Taveras MD from Last 3 Months Social History Tobacco Use Types Packs/Day Years Used Date Smoking Tobacco: Never Assessed Sex and Gender Information Value Date Recorded Sex Assigned at Not on file Gender Identity Not on file Sexual Orientation Not on file Plan of Treatment Health Maintenance Due Date Last Done Comments Hepatitis C Virus Screening 1975 HIV Screening 01/21/1988 DTaP/Tdap/Td Vaccines (1 - Tdap) 1994 Hepatitis B Vaccines (1 of 3 - 19+ 3-dose series) 1994 COVID-19 Vaccine (2023-2 5 season) 2024 Pneumococcal Vaccine: Pediat arsalan (0-5 Years) and At-Risk Patients (6 to 49 Years) Aged Out No longer eligible b ased on patient's age to complete this topic Procedures Procedure Name Priority Date/Time Associated Diagnosis Comments CT LANDMARX SINUS Routine 07/03/2024 4:0 4 PM EST from Last 3 Months Results * CT LANDMARX SINUS (07/03/2024 4:04 PM EST) Anatomical Region Laterality Modality Other 07/03/2024 4:00 PM EST 07/03/2024 4:00 PM EST Impressions 08/14/2024 10:56 PM EST Chronic sinusitis. Electronically signed by: ??Kiran Carrero MD ??08/14/2024 10:56 PM EST RP Thank you for referring your patient to us, Kiran Carrero MD [phone] (Electronically Signed - 08/14/2024 22:56) Narrative 08/14/2024 10:56 PM EST EXAM: ??CT Maxillofacial Sinuses Without Intravenous Contrast CLINICAL HISTORY: ??The patient is 49 years old and is Female; ??Chronic Pansinusitis TECHNIQUE: ??Computed tomography images of the maxillofacial sinuses without intravenous contrast. ??Sagittal and coronal reformatted images were created and reviewed. ??This CT exam was performed using one or more of the following dose reduction techniques: ?? automated exposure control, adjustment of the mA and/or kV according to patient size, and/or use of iterative reconstruction technique. COMPARISON: ??None FINDINGS: ??MAXILLARY SINUSES: ??Right maxillary mucous retention cyst. Left maxillary mucosal thickening. Mild mucosal thickening in the frontal sinuses and anterior ethmoid air cells. Sphenoid sinuses are clear. ??No air-fluid levels. ??SPHENOID SINUSES: ??See above. ??FRONTAL SINUSES: ??See above. ??ETHMOID AIR CELLS: ??See above. ??NASAL CAVITY/SEPTUM: No acute findings. ??BONES/JOINTS: ??No acute fracture. ??SOFT TISSUES: ??Unremarkable. Procedure Note Kiran Carrero MD - 08/14/2024 EXAM: CT Maxillofacial Sinuses Without Intravenous Contrast CLINICAL HISTORY: The patient is 49 years old and is Female; Chronic Pansinusitis TECHNIQUE: Computed tomography images of the maxillofacial sinuses withoutintravenous contrast. Sagittal and coronal reformatted images werecreated and reviewed. This CT exam was performed using one or more of thefollowing dose reduction techniques: automated exposure control, adjustment of the mA and/or kV according topatient size, and/or use of iterative reconstruction technique. COMPARISON: None FINDINGS: MAXILLARY SINUSES: Right maxillary mucous retention cyst. Leftmaxillary mucosal thickening. Mild mucosal thickening in the frontalsinuses and anterior ethmoid air cells. Sphenoid sinuses are clear. Noair-fluid levels. SPHENOID SINUSES: See above. FRONTAL SINUSES: See above. ETHMOID AIR CELLS: See above. NASAL CAVITY/SEPTUM: No acute findings. BONES/JOINTS: No acute fracture. SOFT TISSUES: Unremarkable. IMPRESSION: Chronic sinusitis. Electronically signed by: Kiran Carrero MD 08/14/2024 10:56 PM EST RPWorkstation: [id number] Thank you for referring your patient to us, Kiran Carrero MD [phone] (Electronically Signed - 08/14/2024 22:56) Eugene Taveras MD IMG LEGACY PROCEDURE S from Last 3 Months
--- OUTSIDE RECORDS SUMMARY | 2024-09-14 16:32 | XMS_ITS | Encounter Summary ---
Author Organization [facility] Address [address] [place] [address] Care Team Providers Care Stone Driller Helper Name Role Phone Unavailable Primary Care Provider Unavailabl e Encounter Details Date Type Department Care Team (Late st Contact Info) Description 07/03/2024 Orders Only [facility] [place] [address] [facility], [address] [place] [phone] Eugene Taveras MD [address] [facility] [address] [place], [place] [phone] Social History Tobacco Use Types Packs/Day Years Used Date Smoking Tobacco: Never Assessed Sex and Gender Information Value Date Recorded Sex Assigned at Not on file Gender Identity Not on file Sexual Orientation Not on file documented as of this encounter Plan of Treatment Not on file documented as of this encounter Procedures Procedure Name Priority Date/Time Associated Diagnosis Comments CT LANDMARX SINUS Routine 07/03/2024 4:0 4 PM EST documented in this encounter Results * CT LANDMARX SINUS (07/03/2024 4:04 PM EST) Anatomical Region Laterality Modality Other 07/03/2024 4:00 PM EST 07/03/2024 4:00 PM EST Impressions 08/14/2024 10:56 PM EST Chronic sinusitis. Electronically signed by: ??Kiran Carrero MD ??08/14/2024 10:56 PM EST Thank you for referring your patient to us, Kiran Carrero MD [phone] (Electronically Signed - 08/14/2024 22:56) Narrative 08/14/2024 [...] Carrero MD 08/14/2024 10:56 PM EST RPWorkstation: [id number] Thank you for referring your patient to us, Kiran Carrero MD [phone] (Electronically Signed - 08/14/2024 22:56) Eugene Taveras MD IMG LEGACY PROCEDURE S documented in this encounter Visit Diagnoses Not on filedocumented in this encounter
--- OUTSIDE RECORDS SUMMARY | 2024-09-14 16:32 | XMS_ITS ---
Author Organization [facility] Address [address] [place] [address] Care Team Providers Care Tank Car Loader Name Role Phone NONI SOLORZANO Primary Care Provider REASON FOR VISIT Sema shot Encounters Encounter Location Date Provider Diagnosis [address] [address] 08/20/2024 NONI SOLORZANO PLAN OF TREATMENT Next Appt Details Provider Name:JAYSON LARA, 09/15/2024 03:15:00 PM, [address], [place], [address], Provider Name:JAYSON LARA, 09/29/2024 03:15:00 PM, [address], [place], [address], Provider Name:NONI SOLORZANO, 10/22/2024 02:30:00 PM, [address], [place], [address], Progress Notes * [place] EDOB:1974 (49 yo F)Acc No.[id number]:08/20/2024 Patient:??[place] :1975?Age:49 Y?Sex:Fe male Address:[address] [place] [address] * true * Date:??
--- OUTSIDE RECORDS SUMMARY | 2024-09-14 16:32 | XMS_ITS | Clinical Summary ---
Author Organization [facility] Address [address] [id number] Care Team Providers Care Entry Analyst Name Role Phone Cheryl Escobar PA-C Primary Care Provider Allergies Active Allergy Reactions Criticality Noted Date Comments Aspirin 05/10/2023 Atropine 05/10/2023 Sulfa Antibiotics 05/10/2023 Medications Medication Sig Dispensed Refills Start Date End Date Status tamoxifen (NOLVADEX) 10 MG tablet Take 1 tablet (10 mg total) by mouth daily 0 Active citalopram (CeleXA) 40 MG tablet Take 1 tablet (40 mg total) by mouth daily. 0 Active Active Problems No known active problems Social History Tobacco Use Types Packs/Day Years Used Date Smoking Tobacco: Never Smokeless Tobacco: Never Tobacco Cessation:Counseling Given: Not Answered Alcohol Use Standard Drinks/Week Comments Yes 0 (1 standard drink = 0.6 oz pur e alcohol) mAYBE 3 X A YEAR Sex and Gender Information Value Date Recorded Sex Assigned at Female 05/06/2023 3:55 PM EDT Gender Identity Not on file Sexual Orientation Not on file Job Start Date Occupation Industry Not on file Not on file Not on file Last Filed Vital Signs Vital Sign Reading Time Taken Comments Blood Pressure 127/68 05/10/2023 2:38 PM EDT Pulse 74 05/10/2023 2:38 PM EDT Temperature 36.7 ??C (98.1 ??F) 05/10/2023 2:38 PM ED T Respiratory Rate - - Oxygen Saturation 71% 05/10/2023 2:38 PM EDT Inhaled Oxygen Concentration - - Weight 64 kg (141 lb) 05/10/2023 2:38 PM EDT Height - - Body Mass Index - - Plan of Treatment Health Maintenance Due Date Last Done Comments Hepatitis C Screening 1975 Depression Screening 1987 Preventative Health Evaluation 1993 Cervical Cancer Screening (Pap Smear) 01/21/1996 Colon Cancer Screening (Colonoscopy) 01/21/2020 DTap / Tdap / Td (2 - Td or Tdap) 03/03/2022 03/03/2012 COVID-19 Vaccine ( season) 2024 06/07/2021, 09/10/2020, 08/20/2020 Influenza Vaccine (#1) 2024 8, 05/19/2017, 05/15/2016, Additional history exists Hepatitis B Vaccines Completed 02/02/2002, 08/19/2001, 07/16/2001 Pneumococcal Vaccine Aged Out No long er eligible based on patient's age to complete this topic RSV Ped < 20 months Aged Out No longe r eligible based on patient's age to complete this topic Insurance Payer Benefit Plan / Group Subscriber ID Effective Dates Phone Address [facility] [id number] 2023-Devin t [address] [facility] [address] [place] [address] [facility] [place] Care Teams Entry Analyst Relationship Specialty Start Date End Date Cheryl Escobar PA-C [address] [facility] [place] [address] PCP - General Hematology and Oncology 05/06/23
--- OUTSIDE RECORDS SUMMARY | 2024-09-14 16:32 | XMS_ITS ---
Author Organization [facility] Address [address] [place] [address] Care Team Providers Care Reptile Farmer Name Role Phone NONI SOLORZANO Primary Care Provider ALLERGIES Allergen (clinical drug ingredient) Drug/Non Drug Allergy documented on EMR Reaction Allergy Type Onset Date Status aspirin aspirin (uncoded) Unknown Allergy Ac tive atronine ghs (uncoded) Unknown Allergy Active Gluten gluten free (uncoded) Unknown Allergy Active Substance with sulfonamide structure and antibacterial mechanism of action (substance) sulfa (uncoded) Unknown Allergy Active REASON FOR VISIT pt is here for weight management follow up-discuss sema- see task about pulmonary and allergy MEDICATIONS Medication SIG (Take, Route, Frequency, Duration) Notes Start Date End Date Status Tamoxifen Citrate 20 MG 1 tablet Orally Once a day Active Trelegy Ellipta 200-62.5-25 MCG/ACT 1 puff Inhalation Once a day Active Citalopram Hydrobromide 10 MG 1 tablet Orally Once a day for 10 days 02/20/2024 Active Probiotic - as directed Orally Active Azithromycin 500 MG 1 tablet Orally Thre e times a Week Active Immune Globulin-Hyaluronidase 2.5 GM/25ML as directed Subcutaneous Act hayde SOCIAL HISTORY Tobacco Use: Social History Observation Description Date Details (start date - stop date) Never Smoker NA - NA Sex Assigned At : Social History Observation Description Sex Assigned At Unknown Tobacco Use/Smoking Question Answer Notes Are you a nonsmoker Section Notes: Tob: Never ETOH: Social Drug: None 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0-23.9, adult Z68.23 and Hypertriglyceridemia E78.1 ASSESSMENTS Encounter Date Diagnosis Assessment Notes Treatment Notes Treatment Clinical Notes Section Notes 09/10/2024 Hypogammaglobulinemi a (ICD-10 - D80.1) Sofia is a 49-year-old female present today [...] by next visit, will consider biweekly injections. 09/10/24: BMI 24, Weight 134. Semaglutide 0.25 mg every other week. # Hypogammaglobulinem ia. On Hyzentra every other week. #Hypertriglyceridem ia: Triglyceride elevated level of 156. Recommended jmak-vxo-tijapjb fish oil supplement. Will discuss with primary care visit. Total time spent is was 30 minutes, with more face to face time This medication is prescribed by or in consultation with a board certified obesity and weight management physician Dr. Jayson Barkley The patient will continue exercise regimen [...] Dictation was accomplished with the use of ROOOMERS voice recognition software, prone to medical misidentifications and grammatical errors. This is unintentional and the practitioner does try to identify and correct these, but some could still be present. Please do not hesitate to contact practitioner for clarification. All questions answered to patients satisfaction. Patient verbalized understanding of diagnosis and treatments explained. To call sooner prior to next visit it any questions/concerns arise. 09/10/2024 BMI 23.0-23.9, adult (ICD-10 - Z68.23) Sofia is a 49-year-old female present today [...] by next visit, will consider biweekly injections. 09/10/24: BMI 24, Weight 134. Semaglutide 0.25 mg every other week. # Hypogammaglobulinem ia. On Hyzentra every other week. #Hypertriglyceridem ia: Triglyceride elevated level of 156. Recommended jtgx-eob-whoxvrp fish oil supplement. Will discuss with primary care visit. Total time spent is was 30 minutes, with more face to face time This medication is prescribed by or in consultation with a board certified obesity and weight management physician Dr. Jayson Barkley The patient will continue exercise regimen [...] Dictation was accomplished with the use of ROOOMERS voice recognition software, prone to medical misidentifications and grammatical errors. This is unintentional and the practitioner does try to identify and correct these, but some could still be present. Please do not hesitate to contact practitioner for clarification. All questions answered to patients satisfaction. Patient verbalized understanding of diagnosis and treatments explained. To call sooner prior to next visit it any questions/concerns arise. 09/10/2024 Hypertriglyceridemia (ICD-10 - E78.1) Sofia is a [...] by next visit, will consider biweekly injections. 09/10/24: BMI 24, Weight 134. Semaglutide 0.25 mg every other week. # Hypogammaglobulinem ia. On Hyzentra every other week. #Hypertriglyceridem ia: Triglyceride elevated level of 156. Recommended damk-sjs-grmibvy fish oil supplement. Will discuss with primary care visit. Total time spent is was 30 minutes, with more face to face time This medication is prescribed by or in consultation with a board certified obesity and weight management physician Dr. Jayson Barkley The patient will continue exercise regimen [...] Dictation was accomplished with the use of ROOOMERS voice recognition software, prone to medical misidentifications and grammatical errors. This is unintentional and the practitioner does try to identify and correct these, but some could still be present. Please do not hesitate to contact practitioner for clarification. All questions answered to patients satisfaction. Patient verbalized understanding of diagnosis and treatments explained. To call sooner prior to next visit it any questions/concerns arise. PLAN OF TREATMENT Next Appt Details Provider Name:JAYSON BARKLEY, 09/15/2024 03:15:00 PM, [address], [place], [address], Provider Name:JAYSON BARKLEY, 09/29/2024 03:15:00 PM, [address], [place], [address], Provider Name:NONI SOLORZANO, 10/22/2024 02:30:00 PM, [address], [place], [address], MEDICATIONS ADMINISTERED Medication Instructions Date of Administration Dosage Notes Semaglutide 09/10/2024 0.25 mg MICC B12 INJECTION 09/10/2024 1 mL Progress Notes * SOFIA NATION EDOB:1974 (49 yo F)Acc No.[id number]:09/10/2024 Patient:??SOFIA NATION Provider:??NONI SOLORZANO PA-C :1975?Age:49 Y?Sex:Fe male Date:09/10/2024 Address[address] [facility] Subjective: * Chief Complaints: * ?1. Pt is here for weig ht management follow up-discuss sema- see task about pulmonary and allergy. * HPI: ?Constitutional:? Sofia is a 49-year-old female present today for weight management follow-up. She was diagnosed with hypogammaglobulinemia with Dr. Pankaj Leo. Currently on Hyzentra subcu injections. She was previously on semaglutide 0.5 mg weekly injections. She restarted marathon training. ?Weight on 03/31: 145.4 lbs, BMI: 25.75 ?Weight 06/2024 : 136.91, BMI: 25.04 ?Weight Today: 134 lb. ?Diet: Eats three meals a day, focusing on protein. Gluten free and avoids fried foods. Semaglutide has eliminated craving for sweets like chocolate. Eats 80-100 g of protein daily. ?Exercise: run 3-5x a week. 3-10 miles at a time. Getting back into strength training and yoga. ?Discussed seca scan - 1 lb of fat loss, 5 lbs of muscle loss. * ROS:?Constitutional: Patient denies any excessive fatigue with exercise, no weight loss, no fever and no night sweats ??? Eyes: No eye discharge, no itching, no redness. ??? Ear nose throat: No sore throat, postnasal drip, runny nose, Sneezing ??? Cardiovascular: No chest pain, no shortness of breath, no dyspnea on exertion, no PND, no orthopnea, no irregular pulse ??? Respiratory: No chronic cough, no hemoptysis, no sputum, no wheezing ??? GI: No diarrhea, no constipation no blood in the stools, no pain associated with eating, no indigestion ??? Genitourinary: No painful urination no hesitancy no blood in the urine ??? Musculoskeletal, no limitations to walking and running due to leg pain (venous insufficiency), no joint deformity, no joint stiffness, no chronic back pain, no noise with joint movement ??? Integumentary. No new skin rash. No new changes in skin moles ??? Neurological: No history of seizures, memory loss, No language dysfunction, No inability to concentrate, no localized weakness, no sensation loss, no confusion ??? Psychiatric: No depression, no suicidal thoughts, no anxiety ??? Endocrine: No polyuria no polyphagia or polydipsia, no heat intolerance no cold intolerance ??? Hematological: No easy bruising or Lymph node swelling. * Medical History:??Seasonal a llergies, Asthma, Headache, History of breast cancer, Rosacea, unspecified, Anxiety, Congenital cataract, Basal cell carcinoma (BCC) of skin of left upper extremity including shoulder, Hypogammaglobulinemia. * Surgical History:??cataract removal , uteran oblation , breast reduction 06-27-2022. * Hospitalization/Major Diagno stic Procedure:??Denies Past Hospitalization. * Family History:??Father: shelia garcia, diagnosed with Unspecified essential hypertension, Unspecified nonpsychotic mental disorder following organic brain damage.??Mother: alive, diagnosed with Unspecified essential hypertension.?? 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 * Medications:??Taking Immune Globulin-Hyaluronidase 2.5 GM/25ML Kit as directed Subcutaneous , Taking Azithromycin 500 MG Tablet 1 tablet Orally Three times a Week , Taking Trelegy Ellipta 200-62.5-25 MCG/ACT Aerosol Powder Breath Activated 1 puff Inhalation Once a day , Taking Tamoxifen Citrate 20 MG Tablet 1 tablet Orally Once a day , Taking Probiotic - Capsule as directed Orally , Taking Citalopram Hydrobromide 10 MG Tablet 1 tablet Orally Once a day , Discontinued FLUoxetine HCl 20 MG Capsule 1 capsule Orally Once a day , Medication List reviewed and reconciled with the patient * Allergies:??Aspirin, Sulfa, Atronine Ghs, Gluten Free. Objective: * Vitals:??HR:69/min, BP:110/7 2mm Hg, Wt:134.5lbs, BMI:23.82Index, Ht: 63 in, Oxygen sat %:95%. * Examination: ?General Examination: ?General: sick appearing, well nourished, age appropriate in no acute distress. Speaking in full, clear sentences. ?SKIN: Warm, dry intact. No rashes/lesions. Cap refill < 3 seconds ?HEENT: Normo-cephalic atraumatic. EOM intact. No nystagmus noted. PERRLA. No maxillary sinus tenderness. No frontal tenderness, nasal turbinates are nonboggy and intact, no fluid in either ears ?NECK: Supple without lymphadenopathy ?LUNGS: + Diminished bilateral upper lobe breath sounds ?CARDIAC: Regular rate and rhythm, no murmurs, rubs or gallops. ?Abdomen: Soft, nontender, nondistended. No tenderness if all 4 quadrants. Normoactive bowel sounds. No masses palpable. ?Extremities: Warm and well perfused. No edema noted. ?MSK: Flexion extension bilaterally upper and lower extremities 5/5. Test Desk Trouble Locator strength 5/5. No paraspinous muscle tenderness noted down the spine. No step off deformities. Bilateral lower extremities extension 5/5. ?Neuro: A+O X4 CN II-XI grossly intact. Speaking in full sentences. Hearing intact. Assessment: * Assessment: 1.??Hypogammaglobulinemia - D80.1 (Primary)??2.??BMI 23.0-23.9, adult - Z68.23??3.??Hypertriglyceridemia - E78.1?? Sofia is a 49-year-old fe male present today for weight management follow-up. 06/17/2024: [...] by next visit, will consider biweekly injections. 09/10/24: BMI 24, Weight 134. Semaglutide 0.25 mg every other week. # Hypogammaglobulinemia. On Hyzentra every other week. #Hypertriglyceridemia: Triglyceride elevated level of 156. Recommended qelu-uii-ycxtrga fish oil supplement. Will discuss with primary care visit. Total time spent is was 30 minutes, with more face to face time This medication is prescribed by or in consultation with a board certified obesity and weight management physician Dr. Jayson Barkley The patient will continue exercise regimen with an emphasis on improving/increasing steps to at least 6,000-10,000 steps per [...] Dictation was accomplished with the use of ROOOMERS voice recognition software, prone to medical misidentifications and grammatical errors. This is unintentional and the practitioner does try to identify and correct these, but some could still be present. Please do not hesitate to contact practitioner for clarification. All questions answered to patients satisfaction. Patient verbalized understanding of diagnosis and treatments explained. To call sooner prior to next visit it any questions/concerns arise. Plan: * Treatment: * Therapeutic Injections:? Semaglutide : 0.25 mg (Route: Subcutaneous) given by Anca Guerrero on left arm subcutaneous? MICC B12 INJECTION : 1 mL (Route: Intramuscular) given by Anca Guerrero on right arm intramuscular * Images: Billing Information: * Visit Code:?? 75026 Office Visit, Est Pt., Level 4. * Procedure Codes:?? * Sign off status: Completed true * Provider:??NONI SOLORZANO PA-C Date:??01/2025 History and Physical Notes * HPI (History of Present Illness) Category Sub-Category Detail Notes Category Not es Constitutional Sofia is a 49-year-old female present today for weight management follow-up. She was diagnosed with hypogammaglobulinemia with Dr. Pankaj Leo. Currently on Hyzentra subcu injections. She was previously on semaglutide 0.5 mg weekly injections. She restarted marathon training. Weight on 03/31: 145.4 lbs, BMI: 25.75 Weight 06/2024 : 136.91, BMI: 25.04 Weight Today: 134 lb. Diet: Eats three meals a day, focusing on protein. Gluten free and avoids fried foods. Semaglutide has eliminated craving for sweets like chocolate. Eats 80-100 g of protein daily. Exercise: run 3-5x a week. 3-10 miles at a time. Getting back into strength training and yoga. Discussed seca scan - 1 lb of fat loss, 5 lbs of muscle loss. Examination Category Sub-Category Detail Notes Category Not es General Examination General: sick appearing, well nourished, age appropriate in no acute distress. Speaking in full, clear sentences. SKIN: Warm, dry intact. No rashes/lesions. Cap refill < 3 seconds HEENT: Normo-cephalic atraumatic. EOM intact. No nystagmus noted. PERRLA. No maxillary sinus tenderness. No frontal tenderness, nasal turbinates are nonboggy and intact, no fluid in either ears NECK: Supple without lymphadenopathy LUNGS: + Diminished bilateral upper lobe breath sounds CARDIAC: Regular rate and rhythm, no murmurs, rubs or gallops. Abdomen: Soft, nontender, nondistended. No tenderness if all 4 quadrants. Normoactive bowel sounds. No masses palpable. Extremities: Warm and well perfused. No edema noted. MSK: Flexion extension bilaterally upper and lower extremities 5/5. Test Desk Trouble Locator strength 5/5. No paraspinous muscle tenderness noted down the spine. No step off deformities. Bilateral lower extremities extension 5/5. Neuro: A+O X4 CN II-XI grossly intact. Speaking in full sentences. Hearing intact.
--- OUTSIDE RECORDS SUMMARY | 2024-09-14 16:32 | XMS_ITS ---
Author Organization [facility] Address [address] [place] [address] Care Team Providers Care Wedding Photographer Name Role Phone NONI SOLORZANO Primary Care Provider JHONNY BARKLEY [phone] Encounters Encounter Location Date Provider Diagnosis [facility] [address] [facility] [address] 08/13/2024 JHONNY BARKLEY PLAN OF TREATMENT Next Appt Details Provider Name:JHONNY BARKLEY, 09/15/2024 03:15:00 PM, [address], [place], [address], Provider Name:JHONNY BARKLEY, 09/29/2024 03:15:00 PM, [address], [place], [address], Provider Name:NONI SOLORZANO, 10/22/2024 02:30:00 PM, [address], [place], [address], Progress Notes * SOFIA NATION EDOB:1974 (49 yo F)Acc No.[id number]:08/13/2024 Patient:??SOFIA NATION Provider:??Jhonny Barkley MD :1975?Age:49 Y?Sex:Fe male Date:08/13/2024 Address[address] [place] Pcp:NONI SOLORZANO Subjective: * Chief Complaints: * ? * Medical History:?? Objective: Assessment: Plan: * Treatment: * Images: Billing Information: * Visit Code:?? * Procedure Codes:?? * Sign off status: Pending * Provider:??Jhonny Barkley MD Date:??08/13
--- OUTSIDE RECORDS SUMMARY | 2024-09-14 16:32 | XMS_ITS | Clinical Summary ---
Author Organization [facility] Address [address] [place] [address] Care Team Providers Care Dry Man Name Role Phone Phani Barkley MD Primary Care Provider [phone] Allergies Active Allergy Reactions Criticality Noted Date [...] Health Maintenance Due Date Last Done Comments Cervical Cancer Screening 1975 Cologuard 1975 Colon Cancer Screening 1975 Colonoscopy 1975 FOBT / Fit Test 1975 HIV Screening 1975 HPV and Pap Smear 1975 Hepatitis C Screening 1975 Pap Smear 1975 Sigmoidoscopy 1975 Pneumococcal Vaccine: Pediat arsalan (0-5 Years) and At-Risk Patients (6-64 Years) (1 of 2 - PCV) 1981 Hepatitis B Vaccines (1 of 3 - 19+ 3-dose series) 1994 Mammogram 2015 DTaP,Tdap,and Td Vaccines (2 - Td or Tdap) 03/03/2022 03/03/2012, 01/31/2001 COVID-19 Vaccine (4 - 2023-2 5 season) 2024 06/07/2021, 09/10/2020, 08/20/2020 Influenza Vaccine (#1) 2024 , 05/21/2018, 05/21/2017, Additional history exists Alcohol/Substance Use Screening 08/05/2024 Depression Screening and Follow-Up 08/05/2024 Social Drivers of Health Shelly ual Screening 08/05/2024 RSV Vaccine (60+ years old a nd patients) (1 - 1-dose 75+ series) 2050 Insurance [facility] Care Teams Dry Man Relationship Specialty Start Date End Date Phani Barkley MD [address] [place] [address] PCP - General 09/14/21
--- OUTSIDE RECORDS SUMMARY | 2024-09-14 16:32 | XMS_ITS | Encounter Summary ---
Author Organization [facility] Address [address] [place] [address] Care Team Providers Care Key Punch Teacher Name Role Phone Unavailable Primary Care Provider Unavailabl e Encounter Details Date Type Department Care Team (Late st Contact Info) Description 07/09/2024 Scanned Document [facility] [place] [address] [place] [address] Eugene Taveras MD [address] [facility] [address] [place] [address] Social History Tobacco Use Types Packs/Day Years Used Date Smoking Tobacco: Never Assessed Sex and Gender Information Value Date Recorded Sex Assigned at Not on file Gender Identity Not on file Sexual Orientation Not on file documented as of this encounter Plan of Treatment Not on file documented as of this encounter Visit Diagnoses Not on filedocumented in this encounter
== END ==
LOC: HO.SL 15:51
PROVIDERS: PCP Physician Assistant Medical; Visit Provider Hospitalist
DX: R40.0 Somnolence (principal); R06.83 Snoring; J32.9 Chronic sinusitis, unspecified
CPT/HCPCS: 95806

== ENCOUNTER → 2024-09-14 15:57 | Outpatient (BNV) | payer OTHER, SELFPAY | PROVIDERS: PCP Physician Assistant Medical; Visit Provider Internal Medicine | DX: R40.0 Somnolence (principal); R06.83 Snoring | CPT/HCPCS: 95806 ==

== ENCOUNTER 2024-09-22 09:02 | Outpatient (AMB) | payer OTHER, SELFPAY ==
--- NOTE | 2024-09-22 09:09 | A.OFFVIS_ITS ---
Vital Signs 09/22/24 09:11 Height 5 ft 2 in Weight 136 lb 10.986 oz BMI 25.0 BP 122/78 Blood Pressure Location Rt brachial Position Sitting Pulse 48 L Pulse Source Pulse Oximeter Pulse Oximetry (%) 97 Oxygen Delivery Method Room Air Intake Visit Reasons: Asthma Allergies aspirin Allergy (Severe, Verified 09/22/24 09:13) Itching sulfamethoxazole [From Bactrim] Allergy (Severe, Verified 09/22/24 09:13) Difficulty Breathing trimethoprim [From Bactrim] Allergy (Severe, Verified 09/22/24 09:13) Difficulty Breathing Sulfa Drugs Adverse Reaction (Severe, Uncoded 09/22/24 09:13) Hives HPI Comments Details: The patient is a 49 year woman with a known history of allergies presenting with worsening cough. The patient states that she was in her usual state health until sometime in the winter time when she was exposed to a sick contact. She started developing worsening respiratory symptoms and cough. She ultimately after that went on a trip to [place]. While she was there she also became sick with a respiratory virus. She did test negative for COVID-19. Ultimately after that the patient started developing worsening productive cough. The mucus is excessive and discolored typically greenish in color. She was evaluated multiple times by clinical laboratory medical director. She was given about 4 rounds of prednisone and antibiotics. Although she does feel better she feels like she is still having significant chest congestion. She still has a moderate productive cough. She feels like her lungs are getting better but still feels significant sinus congestion and postnasal drip. She had been evaluated by ENT as well. As part of the workup she did have a CT scan of the chest done at [facility] in 10/23/2023 which was personally by me. No evidence of any active disease Noted. Although possibly some mild bronchitis based on some thickening of the airways. In addition to that she has had some blood work Including a normal eosinophil count. Has not had blood work now in more than a year. Therefore will going to go ahead and request additional blood work to assess her immune system inflammatory conditions and also allergy issues. As far as exposures the patient has had exposure to mold. She does have a humidifier in her home though. No obvious smoldering home. Denies any birds. Denies any exposure to any fumes or toxins. She is a nonsmoker. Does not vape. 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 On examination, she does have significant inflammation nasal turbinates. The patient also has evidence of purulent secretions in her posterior pharynx. Her cough appears to be deep and congested consistent with lower respiratory involvement as well. 04/09/2024 the patient is here for a pulmonary follow-up visit. She is feeling a little better. She responded well to the Trelegy inhaler. Her chest tightness and wheezing has improved. In addition to that she has been on the azithromycin 3 times a week. Her chest congestion is also better. Although her nose is still an issue. She has had significant irritation to the nose. Specially when using the budesonide we did Neti bottle. She has been getting significant irritation and pain. The areas significantly inflamed to psych was before. Therefore, will go ahead and stop any kind of irritating nasal therapy at this time. We did review her blood work. She does have a low IgG suggesting some degree of hypogammaglobulinemia. Therefore will continue the azithromycin right now and will go ahead and see if she has been vaccinated for pneumonia. If she has not she can get her pneumococcal 23 Valent we can did check her titers a few weeks later to make sure that she is developing an adequate response in view of her immunodeficiency. In view of her significant sinusitis will go ahead and put a referral went to ENT in order to better address the issues. 09/22/2024 the patient is here for pulmonary follow-up visit. Overall she is doing better. She that has made a dramatic difference in her life. Respiratory elizalde she is doing also better. She is starting to run again. She has a raised coming up in October and then again in November. In the meantime she continues on the Trelegy. She continues on the azithromycin 3 times week. She feels these medications have been helpful. Will go ahead and continue them for now for the winter months but then the springtime she is going to start weaning off the azithromycin. If her symptoms worsen she will always call we can always help her with that. Meantime we did review her CT scan of the chest demonstrating a small hiatal hernia. We did talk about the reflux diet and making sure she avoids any triggers from a reflux standpoint. From an airway standpoint she still has a prolonged expiratory phase even with the Trelegy. I did recommend she use her inhaler prior to exercise. And also did provide her with peak flow in order for her to measure her numbers pre and post exercise. The patient is doing well otherwise will follow-up in the fall and should continue with immunology to receive her IVIG on a monthly basis. [facility] Medical History (Updated 09/22/24 @ 21:13 by Pankaj Rucker MD) Primary immune deficiency disorder Allergies Asthma Sinusitis Chronic bronchitis Social History Patient Tobacco Use Status: Never used Tobacco Review of Systems Const Denies difficulty sleeping and Denies fever(s) Eyes Reports no additional complaints ENT Reports nasal congestion, Denies nasal discharge, Denies post nasal drip and Denies sinus pressure Card Denies chest pain Resp Denies change in phlegm color, Denies chest congestion, Reports cough and Reports wheezing GI Reports no additional complaints Musc Reports no additional complaints Skin/Breast Denies rash Carl/Lymph Denies lymphadenopathy Aller/Immun Reports wheezing Physical Exam Vital Signs: Last Vital Signs Pulse 48 L 09/22/24 09:11 BP 122/78 09/22/24 09:11 Pulse Ox 97 09/22/24 09:11 Oxygen Delivery Method Room Air 09/22/24 09:11 BMI result Body Mass Index 25.0 Const General: comfortable HEENT Ears: TM's normal bilaterally General nose exam: Normal external nose present and no nasal polyps Throat: Yes postnasal drainage Neck Neck: Yes supple Chest Chest palpation & inspection: normal inspection of the chest Resp Effort & Inspection: normal respiratory effort Auscultation: clear to auscultation bilaterally and lung sounds not diminished Cardio Heart sounds: S1 normal heart sound present and S2 normal heart sound present GI Palpation (GI): Soft to palpation Skin General skin exam: no rashes or lesions noted Extrem General: Yes no clubbing, cyanosis or edema Assessment & Plan Assessment & Plan (1) Chronic bronchitis: Comment: better Code(s): J42 - Unspecified chronic bronchitis Category: Medical Qualifiers: Chronic bronchitis type: mucopurulent Qualified Code(s): J41.1 - Mucopurulent chronic bronchitis (2) Sinusitis: Comment: resolved Code(s): J32.9 - Chronic sinusitis, unspecified Category: Medical Qualifiers: Chronicity: chronic Sinusitis location: unspecified location Qualified Code(s): J32.9 - Chronic sinusitis, unspecified (3) Asthma: Code(s): J45.909 - Unspecified asthma, uncomplicated Category: Medical Qualifiers: Asthma complication type: uncomplicated Asthma persistence: persistent Asthma severity: moderate Qualified Code(s): J45.40 - Moderate persistent asthma, uncomplicated (4) Allergies: Code(s): T78.40XA - Allergy, unspecified, initial encounter Category: Medical Qualifiers: Encounter type: initial encounter Qualified Code(s): T78.40XA - Allergy, unspecified, initial encounter (5) Hypogammaglobulinemia: Code(s): 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 Category: Medical Plan continue Trelegy 200mcg daily Xopenex as needed neti bottle nasonex peak flows continue azithromycin MWF till Spring 2024, then wean off IVIG as per Immunology F/U Fall 2024 Medications: Refilled azithromycin Take 1 tablet on Saturday/Saturday/Saturday 250 mg PO 3XW 90 days 39 tabs 0RF K21.9 - Gastro-esophageal reflux disease without esophagitis Coding Level of Care Code Est Pt Level 4 (63863) Diagnoses Mucopurulent chronic bronchitis J41.1 Chronic bronchitis type: mucopurulent Chronic sinusitis, unspecified location J32.9 Chronicity: chronic Sinusitis location: unspecified location Moderate persistent asthma without complication J45.40 Asthma complication type: uncomplicated Asthma persistence: persistent Asthma severity: moderate Allergy, initial encounter T78.40XA Encounter type: initial encounter Hypogammaglobulinemia D80.1 Time Spent (min) 16
[2024-09-22 09:11] VITALS: BP 122/78; PULSE 48; O2SAT 97; BMI 25.0
--- OUTSIDE RECORDS SUMMARY | 2024-09-22 09:33 | XMS_ITS | Continuity of Care Document ---
Author Organization [facility] Address [address] [place] [address]- Care Team Providers Care Clinical Biochemist Name Role Phone Filippo VILLAVICENCIO, Phani Bautista Primary Care Physician Encounter [facility] ACCT R [id number] Date(s): 08/17/24 - 09/16/24 [facility] [address] [place] [address]- Encounter Type: Triage Allergies, Adverse Reactions, Alerts Substance Criticality Severity Reaction Reaction Severity Status aspirin 1 itchy hives Active sulfa drugs facial swelling Ac tive Glutens triggers migraines A ctive 1hives Medications Advair Diskus 100 mcg-50 mcg inhalation powder Inhalation, 2 times a day, Refills 0, Maintenance, 07/05/23 2:56:00 PM EST Start Date: 07/05/23 Status: Ordered Repeat number: 1 azithromycin 250 mg oral tablet TAKE 1 TABLET BY MOUTH THREE TIMES A WEEK ON SATURDAY/SATURDAY/SATURDAY Start Date: 02/25/24 Status: Ordered Repeat number: 1 budesonide 0.5 mg/2 mL inhalation suspension INHALE CONTENTS OF 1 VIAL VIA NEBULIZER DAILY Start Date: 02/25/24 Status: Ordered Repeat number: 1 citalopram 40 mg oral tablet 1 tablet, By Mouth, Daily, # 90 tablet, 0 Refills, Maintenance, 08/18/24 8:26:00 AM EST, [facility] #[id number], 157, cm, 02/25/24 9:23:00 EDT, Height, 66.5, kg, 07/05/23 22:31:00 EST, Dry Weight Start Date: 08/18/24 Status: Ordered Quantity: 90.0 Unit: tablet Repeat number: 1 Hizentra 0 Refills, Maintenance, 09/16/24 4:13:00 PM EST, Partial fill upon patient request if the prescription is for a schedule II opioid drug. Start Date: 09/16/24 Status: Ordered Repeat number: 1 Misc Rx See Instructions, Refills 0, Maintenance, [facility], 06/25/22 12:58:00 PM EST, Supply Start Date: 06/25/22 Status: Ordered Repeat number: 1 Multivitamin By Mouth, Daily, 0 Refills, Maintenance, 06/25/22 12:58:00 PM EST, Partial fill upon patient request if the prescription is for a schedule II opioid drug. Start Date: 06/25/22 Status: Ordered Repeat number: 1 nabumetone 500 mg oral tablet 2 tablet = 1,000 mg, By Mouth, Daily, # 60 tablet, 1 Refills, Maintenance, 02/25/24 4:36:00 PM EDT, [facility] #[id number], Partial fill upon patient request if the prescription is for a scheduleII opioid drug., 157, cm, 02/25/24 9:23:00 EDT, Height, 66.5, kg, 07/05/23 22:31:00 EST, Dry Weight Start Date: 02/25/24 Stop Date: 04/25/24 Status: Ordered Quantity: 60.0 Unit: tablet Repeat number: 2 Right ASO ankle stabilizing orthosis Right ASO ankle stabilizing orthosis, See Instructions, # 1 each, Refills 0, Tot. Refills 0, Maintenance, To be worn while ambulating, 05/18/21 9:54:00 AM EDT, Supply Start Date: 05/18/21 Status: Ordered Quantity: 1.0 Unit: each Repeat number: 1 Indication: Peroneal tendinitis, right leg Right tall CAM walker boot Right tall CAM walker boot, See Instructions, # 1 each, Refills 0, Tot. Refills 0, Maintenance, To be worn while ambulating, 05/18/21 9:47:00 AM EDT, Supply Start Date: 05/18/21 Status: Ordered Quantity: 1.0 Unit: each Repeat number: 1 Indication: Peroneal tendinitis, right leg tamoxifen 10 mg oral tablet See Instructions, Take 1/2 tablet (5mg) daily, # 45 tablet, Refills 3, Tot. Refills 3, Maintenance,09/16/24 4:39:00 PM EST, Instructions Replace Required Details, Route to Pharmacy Electronically, [facility] #[id number], Partial fill upon patient request if the prescription is for a schedule II opioid drug., 157, cm, 09/16/24 16:12:00 EST, Height, 66.5, kg, 07/05/23 22:31:00 EST, Dry Weight Start Date: 09/16/24 Status: Ordered Quantity: 45.0 Unit: tablet Repeat number: 4 tamoxifen 20 mg oral tablet 1 tablet, By Mouth, Daily, # 90 tablet, 3 Refills, Maintenance, 08/13/24 9:15:00 AM EST, [facility] #[id number], 157, cm, 02/25/24 9:23:00 EDT, Height, 66.5, kg, 07/05/23 22:31:00 EST, Dry Weight Start Date: 08/13/24 Status: Ordered Quantity: 90.0 Unit: tablet Repeat number: 1 toe cream toe cream, 0 Refills, Maintenance, 07/23/22 7:58:00 AM EST Start Date: 07/23/22 Status: Ordered Repeat number: 1 Trelegy Ellipta 200 mcg-62.5 mcg-25 mcg/inh inhalation powder 1 puffs, INHALE 1 PUFF BY MOUTH DAILY Start Date: 02/25/24 Status: Ordered Repeat number: 1 valacyclovir 1 gm oral tablet TAKE 2 TABLETS BY MOUTH AT ONSET OF COLD SORES AND 12 HOURS LATER Start Date: 02/25/24 Status: Ordered Repeat number: 1 Voltaren 1% topical gel 1 application, Topically, 4 times a day, PRN for pain, take with food, # 100 Gm, 1 Refills, Maintenance, 05/18/21 9:41:00 AM EDT, Gel, [facility] #[id number], Partial fill upon patient request if the prescription is for a schedule II opioid drug., 1 application Topically 4 times a day,PRN:for pain,Instr:take with food, 160, cm, 05/18/21 8:59:00 EDT, Height, 70, kg, 01/01/20 18:29:00 EDT, DryWeight Start Date: 05/18/21 Status: Ordered Quantity: 100.0 Unit: g Repeat number: 2 Problem List Condition Confirmation Course Effective Dates Status Health St atus Informant Anxiety Confirmed Active Asthma Confirmed Active Cataract, congenital Confirmed Active Family history of breast cancer Confirmed Active Lobular carcinoma in situ (LCIS) single focus of Left breast, 2021 Confirmed Active Dense breast tissue on mammogram Confirmed Active Ocular nystagmus Confirmed Active Social History Social History Type Response Smoking Status Never (less than 100 in lifetime) entered on: 05/18/21 Sex Sex Representation Female (finding) Patient Care team information Care Team Personnel Name: Cheryl Callaway Position: [facility] Outreach Member Role: Lifetime Consulting Physician Address: [address] [place] [address] [facility] Weight Managment [address] [place], [place] [address] Telecom: Name: Filippo VILLAVICENCIO, Phani Bautista Position: [facility] Outreach Member Role: PCP Address: [address] [place] [address] [address] [facility] Primary [facility] Weight Management [place], [place] [address] Telecom: Care Team Related Persons Name: SANTIAGO NATION Insurance Providers Guarantor name: SOFIA NATION Health Plan Information #: 1 Payer: [employer] HMO Member Number: NA Policy Number: NA Group Number: NA
--- OUTSIDE RECORDS SUMMARY | 2024-09-22 09:33 | XMS_ITS ---
Author Organization [facility] Address [address] [place] [address] Care Team Providers Care Manager Search Engine Name Role Phone NONI SOLORZANO Primary Care Provider REASON FOR VISIT Sema shot Encounters Encounter Location Date Provider Diagnosis [address] [address] 08/20/2024 NONI SOLORZANO PLAN OF TREATMENT Next Appt Details Provider Name:JAYSON LARA, 09/29/2024 03:15:00 PM, [address], [place], [address], Provider Name:NONI SOLORZANO, 10/22/2024 02:30:00 PM, [address], [place], [address], Progress Notes * SOFIA NATION EDOB:1974 (49 yo F)Acc No.[id number]:08/20/2024 Patient:??SOFIA NATION :1975?Age:49 Y?Sex:Fe male Address:[address] [place] [address] * true * Date:??
--- OUTSIDE RECORDS SUMMARY | 2024-09-22 09:33 | XMS_ITS | Encounter Summary ---
Author Organization [facility] Address [address] [place] [address] Care Team Providers Care Microbiology Lab Manager Name Role Phone Cheryl Escobar Primary Care Provider [phone] Encounter Details Date Type Department Care Team ([facility] st Contact Info) Description 09/18/2024 Telephone Gastroenterology - [address] [facility] [address] [place] [phone] Katharine Pat MD [address] [facility] [address] [place] [address] Social History Tobacco Use Types Packs/Day Years Used Date Smoking Tobacco: Never Smokeless Tobacco: Never Alcohol Use Standard Drinks/Week Comments Yes 0 (1 standard drink = 0.6 oz pur e alcohol) Comments Unknown Sex and Gender Information Value Date Recorded Sex Assigned at Not on file Legal Sex Female 2:07 PM EST Gender Identity Not on file Sexual Orientation Not on file documented as of this encounter Progress Notes * Debbie Romero MA - 09/18/2024 11:10 AM EST ORDER SENT TO [facility] FOR LIVER ULTR[facility]OUND - PT AWARE * Lizette Handley MA - 09/18/2024 10:53 AM EST Pt received a letter to call the office to sched a ultrasound appt. documented in this encounter Plan of Treatment Not on file documented as of this encounter Visit Diagnoses Not on filedocumented in this encounter Care Teams Microbiology Lab Manager Relationship Specialty Start Date End Date Cheryl Escobar PA [address] [place] [phone] PCP - General 05/06/23 documented as of this encounter
--- OUTSIDE RECORDS SUMMARY | 2024-09-22 09:33 | XMS_ITS ---
Author Organization [facility] Address [address] [facility] [place] [address] Care Team Providers Care Scuba Diving Instructor Name Role Phone NONI SOLORZANO Primary Care Provider [phone] ALLERGIES Allergen (clinical drug ingredient) Drug/Non Drug [...] Globulin-Hyaluronidase 2.5 GM/25ML as directed Subcutaneous Act hadye SOCIAL HISTORY Tobacco Use: Social History Observation Description Date Details (start date - stop date) Never Smoker NA - NA Sex Assigned At : Social History Observation Description Sex Assigned At Unknown Tobacco Use/Smoking Question Answer Notes Are you a nonsmoker Section Notes: Tob: Never ETOH: Social Drug: None 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 Weigher PROBLEMS Problem Type ICD Code Onset Dates Problem Status W/U Status Risk SNOMED Code Notes Problem Hypogammaglobulinemi a (D80.1) Active confirmed Hypogammaglobul inemia ([id number]) VITAL SIGNS Heart Rate 69 /min 09/10/2024 Blood pressure systolic 110 mm Hg 09/10/19 25 Blood pressure diastolic 72 mm Hg 025 Weight 134.5 lbs 09/10/2024 BMI 23.82 kg/m2 09/10/2024 Height 63 in 09/10/2024 Oximetry 95 % 09/10/2024 Encounters Encounter Location Date Provider Diagnosis [facility] [address] [place] [address] 09/10/2024 NONI SOLORZANO Hypogammaglobulinemi a D80.1 ; [...] ia: Triglyceride elevated level of 156. Recommended ekoc-fbg-[id number] fish oil supplement. Will discuss with primary [...] Dictation was accomplished with the use of [employer] voice recognition software, prone to medical misidentifications [...] ia: Triglyceride elevated level of 156. Recommended chey-peu-omiykgr fish oil supplement. Will discuss with primary [...] Dictation was accomplished with the use of [employer] voice recognition software, prone to medical misidentifications [...] ia: Triglyceride elevated level of 156. Recommended hbbw-gsr-llidbxj fish oil supplement. Will discuss with primary [...] Dictation was accomplished with the use of [employer] voice recognition software, prone to medical misidentifications [...] TREATMENT Next Appt Details Provider Name:JAYSON BARKLEY, 09/29/2024 03:15:00 PM, [address], [place], [address], Provider Name:NONI SOLORZANO, 10/22/2024 02:30:00 PM, [address], [place], [address], MEDICATIONS ADMINISTERED Medication Instructions Date of Administration Dosage Notes Semaglutide 09/10/2024 0.25 mg MICC B12 INJECTION 09/10/2024 1 mL Progress Notes * SOFIA NATION EDOB:1974 (49 yo F)Acc No.[id number]:09/10/2024 Patient:??SOFIA NATION Provider:??NONI SOLORZANO PA-C :1975?Age:49 Y?Sex:Fe male Date:09/10/2024 Address[address] [facility] Subjective: * Chief Complaints: * ?1. 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 * Medications:??Taking Immune Globulin-Hyaluronidase 2.5 GM/25ML Kit [...] extension bilaterally upper and lower extremities 5/5. International Specialist strength 5/5. No paraspinous muscle tenderness noted [...] #Hypertriglyceridemia: Triglyceride elevated level of 156. Recommended sswp-iet-cnxmdsu fish oil supplement. Will discuss with primary [...] Dictation was accomplished with the use of [employer] voice recognition software, prone to medical misidentifications [...] * Images: Billing Information: * Visit Code:?? 34314 Office Visit, Est Pt., Level 4. * [...] extension bilaterally upper and lower extremities 5/5. International Specialist strength 5/5. No paraspinous muscle tenderness noted down the spine. No step off deformities. Bilateral lower extremities extension 5/5. Neuro: A+O X4 CN II-XI grossly intact. Speaking in full sentences. Hearing intact.
--- OUTSIDE RECORDS SUMMARY | 2024-09-22 09:33 | XMS_ITS | Continuity of Care Document ---
Author Organization [facility] Address [address] [place] [address]- Care Team Providers Care J2Ee Programmer Name Role Phone Filippo VILLAVICENCIO, Phani Bautista Primary Care Physician Encounter [facility] Date(s): 08/18/24 - 09/17/24 [facility] [address] [place] [address] Encounter Type: Triage Allergies, Adverse Reactions, Alerts [...] 0 Refills, Maintenance, 08/18/24 8:26:00 AM EST, [facility] #[id number], 157, cm, 02/25/24 9:23:00 EDT, Height, 66.5, [...] 1 Refills, Maintenance, 02/25/24 4:36:00 PM EDT, [facility] #[id number], Partial fill upon patient request if the [...] Replace Required Details, Route to Pharmacy Electronically, [facility] #[id number], Partial fill upon patient request if the prescription is for a schedule II opioid drug., 157, cm, 09/16/24 16:12:00 EST, Height, 66.5, kg, 07/05/23 22:31:00 EST, Dry Weight Start Date: 09/16/24 Status: Ordered Quantity: 45.0 Unit: tablet Repeat number: 4 tamoxifen 20 mg oral tablet 1 tablet, By Mouth, Daily, # 90 tablet, 3 Refills, Maintenance, 08/13/24 9:15:00 AM EST, [facility] #[id number], 157, cm, 02/25/24 9:23:00 EDT, Height, 66.5, [...] Refills, Maintenance, 05/18/21 9:41:00 AM EDT, Gel, [facility] #[id number], Partial fill upon patient request if the [...] Care Team Personnel Name: Cheryl Callaway Position: [facility] Outreach Member Role: Lifetime Consulting Physician Address: [address] [place] [address] Personal [facility] Weight Managment [address] [place], [place] [address] Telecom: Name: Filippo VILLAVICENCIO, Phani Bautista Position: [facility] Outreach Member Role: PCP Address: [address] [place] [address] [address] [facility] Weight Management [place], [place] [address] Telecom: Care Team Related Persons Name: SANTIAGO NATION Insurance Providers Guarantor name: SOFIA NATION Health Plan Information #: 1 Payer: [employer] HMO Member Number: NA Policy Number: NA Group Number: NA
--- OUTSIDE RECORDS SUMMARY | 2024-09-22 09:33 | XMS_ITS | Patient Health Record ---
Author Organization [facility] Address [address] [facility] [place] [address] Care Team Providers Care Carrier Packer Name Role Phone NONI SOLORZANO Primary Care Provider [phone] BARKLEY, JHONNY Unavailable [phone] DEISI YAN Unavailable [phone] MICHAELA DUKES Unavailable [phone] ALLERGIES Allergen (clinical drug ingredient) Drug/Non Drug [...] Reviewed date:10/09/2023 10:29:47 AM Interpretation: Performing Lab:JONO, [facility] [id number] Bannerradha Argueta, [id number] Geremias Erazo M.D.,PhD Notes/Report: MYCOPLASMA PNEUMONIAE ANTIBODY [...] Reviewed date:10/07/2023 08:11:28 AM Interpretation: Performing Lab:JONO [facility] [id number] Lyla Argueta, [id number] Geremias Erazo M.D.,PhD Notes/Report: S. PNEUMONIAE ANTIGENS, URINE Not Detected Not Detected T4, FREE Reviewed date:10/04/2023 08:06:46 AM Interpretation: Performing Lab:NL2, [facility] Tonio Sarmiento Notes/Report: T4, FREE 0.9 0.8-1.8 ng/dL TSH Reviewed date:10/04/2023 08:06:46 AM Interpretation: Performing Lab:NL2, [facility] Tonio Sarmiento Notes/Report: TSH 1.89 Reference Range > or = 20 Years 0.40-4.50 Ranges First trimester 0.26-2.66 Second trimester 0.55-2.73 Third trimester 0.43-2.91 T3, FREE Reviewed date:10/04/2023 08:06:46 AM Interpretation: Performing Lab:NL2, [facility] Tonio Sarmiento Notes/Report: T3, FREE 2.9 2.3-4.2 pg/mL LEGIONELLA PNEUMOPHILA AB (I GG), IFA Reviewed date:10/10/2023 08:16:20 AM Interpretation: Performing Lab:EZ, [facility],[address] Ilan Aviles [id number] Erica Nguyen MD,PhD,SHIRLEY Notes/Report: LEGIONELLA PNEUMOPHILA AB [...] analytical performance characteristics have been determined by [facility]. It has not been cleared or approved by the FDA. This assay has been validated pursuant to the CLIA regulations and is used for clinical purposes. US Liver Reviewed date:10/17/2023 01:56:35 PM Interpretation: Performing Lab: Notes/Report: Original [facility]ing [facility] [id number] Reviewed date:05/19/2024 08:04:55 AM Interpretation: Performing Lab:[facility], [address] [place] [address], Phone - [phone], Director - Aleta Notes/Report: Hemoglobin A1c 5.2 4.8-5.6 % . Prediabetes: 5.7 - 6.4 Diabetes: >6.4 Glycemic control for adults with diabetes: <7.0 Vitamin [id number] Reviewed date:05/19/2024 08:04:55 AM Interpretation: Performing Lab:[facility], [place], Phone - [phone], Director - Aleta Notes/Report: Vitamin B12 238 092-5025 pg/mL Urinalysis, Complete-[id number] Reviewed date:05/19/2024 08:04:55 AM Interpretation: Performing Lab:[facility] [place], Phone - [phone], Director - [facility] Notes/Report: Specific [place] 1.023 1.005-1.030 pH 5.5 5.0-7.5 Urine-Color Yellow [...] None seen None seen/Few Yeast Trichomonas Comment TSH-[id number] Reviewed date:05/19/2024 08:04:55 AM Interpretation: Performing Lab:[facility], Phone - [phone], [facility] Notes/Report: TSH 1.540 0.450-4.500 uIU/mL CBC With Differential/Platel et-[id number] Reviewed date:05/19/2024 08:04:55 AM Interpretation: Performing Lab:[facility], Phone - [phone], Director [facility] Notes/Report: WBC 5.2 3.4-10.8 x10E3/uL RBC 4.70 [...] % Immature Grans (Abs) 0.0 0.0-0.1 x10E3/uL NRBC Hematology Comments: Vitamin D, 99-Eswmcao-[id number] Reviewed date:05/19/2024 08:04:55 AM Interpretation: Performing Lab:[facility] [place], [address] [facility], Phone - [phone], Director - Aleta Notes/Report: Vitamin D, 25-Hydroxy 42.5 30.0-100.0 ng/mL Vitamin D deficiency has been defined by the [place] of Medicine and an Endocrine Society practice guideline as a level of serum 25-OH vitamin D less than 20 ng/mL (1,2). The Endocrine Society went on to further define vitamin D insufficiency as a level between 21 and 29 ng/mL (2). 1. IOM ([place] of Medicine). 2010. Dietary reference intakes for calcium and D. [place]: The National Academies Press. 2. Carol MF, Kobe NC, Michelle-Masood MYLES, et al. Evaluation, treatment, and prevention of vitamin D deficiency: an Endocrine Society clinical practice guideline. JCEM. 2010; 96(7):1911-30. Lipid Panel-[id number] Reviewed date:05/19/2024 08:03:26 AM Interpretation: Performing Lab:[facility] [place], [address] [facility], Phone - [phone], Director - Aleta Notes/Report: Cholesterol, Total 169 100-199 mg/dL Triglycerides 156 0-149 mg/dL HDL Cholesterol 76 >39 mg/dL VLDL Cholesterol [place] 26 5-40 mg/dL LDL Chol Calc ([facility]) 67 0-99 mg/dL LDL Calc Comment: Comp. Metabolic Panel (14)-3 Reviewed date:05/19/2024 08:04:55 AM Interpretation: Performing Lab:[facility] [place], [address] [facility], [place], Phone - [phone], Director - Aleta Notes/Report: Glucose 91 70-99 [...] Diagnosis 1 Abnormal ultrasound (R93.89) Referral Organization [facility] Referring Provider First Name NONI Referring Provider Last Name RASHAD Referring Provider Speciality Internal M edicine Referred Provider Specialty Gastrointest inal surgeon Clinical Notes aletha perkins 0 10/17/2023 01:59:52 PM > sent to [facility] seen for colonscopy would like to see her again if not quinmaddie krystal 10/29/2023 02:29:06 PM >refaxed [phone] and given to pt paper referral, Pedro Sims 03/05/2024 01:37:07 PM > The patient was seen on 11/26/2023 Referral Priority Routine MEDICATIONS Medication SIG (Take, Route, Frequency, Duration) Notes Start Date End Date Status Probiotic - as directed Orally Active Citalopram Hydrobromide 10 MG 1 tablet Orally Once a day for 10 days 02/20/2024 Active Trelegy Ellipta 200-62.5-25 MCG/ACT 1 puff Inhalation Once a day Active Tamoxifen Citrate 20 MG 1 tablet Orally Once a day Active Immune Globulin-Hyaluronidase 2.5 GM/25ML as directed Subcutaneous Act hayde Azithromycin 500 MG 1 tablet Orally Thre e times a Week Active IMMUNIZATIONS Vaccine Route Administration Date Status [...] Tob: Never ETOH: Social Drug: None HNE- Certified Financial Planner for Provider Senior Resident Care Director Tob: Never ETOH: Social Drug: None HNE- Certified Financial Planner for Provider Senior Resident Care Director Tob: Never ETOH: Social Drug: None HNE- Certified Financial Planner for Provider Senior Resident Care Director Tob: Never ETOH: Social Drug: None HNE- Certified Financial Planner for Provider Senior Resident Care Director PROBLEMS Problem Type ICD Code Onset Dates Problem Status W/U Status Risk SNOMED Code Notes Problem Vitamin B12 deficiency anemia, unspecified (D51.9) Active confirmed Vitamin B>12< deficiency anaemia (74422620) Problem Vitamin D deficiency, unspecified (E55.9) Active confirmed Vitamin D deficiency (49275189) Problem Hyperlipidemia, unspecified (E78.5) Active confirmed Hyperlip idemia (31471408) Problem Other forms of nystagmus (H55.09) Active confirmed Nystagmus (254757 ) Problem Unspecified asthma, uncomplicated (J45.909) Active confirmed Uncomplicated a sthma (disorder) (277656974) Problem Congenital cataract (Q12.0) Active confirmed Congenital justina ract (93186633) Problem Acquired hypothyroidism (E03.9) Active confirmed Acquired hypothyroidism (139392514) Problem Anxiety (F41.9) Active confirmed Anxiet y (42944133) Problem Adult general medical exam (Z00.00) Active confirmed Adult health examination (865784430) Problem Depression, unspecified depression type (F32.9) Active confirmed Depressive diso rder (disorder) (98075968) Problem Seasonal allergies (J30.2) Active confirmed Seasonal allerg y (002357761) Problem Pain (R52) Active confirmed Pain (57063 000) Problem Sinusitis, unspecified chronicity, unspecified location (J32.9) Active confirmed Chronic sinusit is (32654476) Problem Vitamin D deficiency (E55.9) Active confirmed Vitamin D defic iency (72216620) Problem Restless leg syndrome (G25.81) Active confirmed Restless l egs syndrome (06324602) Problem Abnormal ultrasound (R93.89) Active confirmed Ultrasound scan abnormal (146469621) Problem Diabetes mellitus screening (Z13.1) Active confirmed Diabetes m ellitus screening (204280761) Problem History of breast cancer (Z85.3) Active confirmed Personal hist ory of primary malignant neoplasm of breast (851334157) Problem Hypertriglyceridemia (E78.1) Active confirmed 363241385 Problem Congestion of nasal sinus (R09.81) Active confirmed Congestion of nasal sinus (11569354) Problem Liver cyst (K76.89) Active confirmed Li cristina cyst (25971967) Problem Seasonal allergic rhinitis due to other allergic trigger (J30.89) Active confirmed Allergic rh initis (56077351) Problem Asthma (J45.909) Active confirmed Asthm a (030229055) Problem Restless legs syndrome (RLS) (G25.81) Active confirmed Restless legs (52422917) Problem Hypogammaglobulinemi a (D80.1) Active confirmed Hypogammaglobul inemia (495646849) Problem Hyperlipidemia (E78.5) Active confirmed Hyperlipidemia (25830987) Problem 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) Active confirmed IgG subclass deficiency (621158718) VITAL SIGNS Heart Rate 69 /min 09/10/2024 Blood pressure diastolic 72 mm Hg 09/10/2024 Oximetry 95 % 09/10/2024 Height 63 in 09/10/2024 Blood pressure systolic 110 mm Hg 09/10/2024 Weight 134.5 lbs 09/10/2024 BMI 23.82 kg/m2 09/10/2024 Encounters Encounter Location Date Provider Diagnosis [facility] [address] [place] [address] 10/11/[address] [place] [address] 10/15/2023 NONI SOLORZANO Elevated liver enzym es R74.8 [address] [place] [address] 10/17/2023 NONI SOLORZANO [facility] [address] [place] [address] 12/10/2023 NONI SOLORZANO [facility] [address] [place] [address] 02/20/2024 NONI SOLORZANO Adult general medica l exam Z00.00 ; Hyperlipidemia E78.5 ; Vitamin D deficiency E55.9 ; Acquired hypothyroidism E03.9 ; Diabetes mellitus screening Z13.1 ; Vitamin B12 deficiency anemia, unspecified D51.9 and Pain R52 [address] [place], [place] 07/30/2024 MICHAELA ROSELINE IgG deficiency D80.3 [address] [place] 10/11/2023 NONI RASHAD Liver cyst K76.89 [address] [place] 10/17/2023 NONI RASHAD [address] [place] 02/26/2024 NONI RASHAD [address] [place], [place] 05/04/2024 NOIN RASHAD [address] [place] 05/05/2024 NONI RASHAD [address] [place] 05/10/2024 NONI RASHAD [address] [place] 05/11/2024 NONI RASHAD [address] [place] 05/11/2024 NONI RASHAD [address] [place] 05/20/2024 NONI RASHAD [address] [place] 06/22/2024 NONI RASHAD [address] [place] 07/27/2024 NONI RASHAD [address] [place] 08/04/2024 NONI RASHAD [address] [place] 08/04/2024 NONI RASHAD [address] [place] 08/04/2024 NONI RASHAD [address] [place] [address] 08/04/2024 NONI SOLORZANO [address] [facility] [address] [place] [address] 08/20/2024 NONI SOLORZANO [facility] [address] [place] [address] 07/13/2024 NONI SOLORZANO [facility] [address] [place] [address] 10/03/2023 NONI SOLORZANO Congestion of nasal sinus R09.81 ; Chronic cough R05.3 ; Asthma J45.909 and History of breast cancer Z85.3 [facility] [address] [place] [address] 03/31/2024 NONI SOLORZANO Overweight E66.3 ; B TN 25.0-25.9,adult Z68.25 ; History of breast cancer Z85.3 and Hyperlipidemia, unspecified E78.5 [facility] [address] [place] [address] 05/11/2024 NONI SOLORZANO [facility] [address] [place] [address] 06/17/2024 DEISI FARRAH Hypertriglyceridemia E78.1 [facility] [address] [place] [address] 09/10/2024 NONI SOLORZANO Hypogammaglobulinemi a D80.1 ; BMI 23.0-23.9, adult Z68.23 and Hypertriglyceridemia E78.1 [facility] [address] [place] [address] 02/20/2024 NONI SOLORZANO Annual physical exam Z00.00 ; History of breast cancer Z85.3 ; Hyperlipidemia, unspecified E78.5 ; Vitamin D deficiency, unspecified E55.9 ; Screening for thyroid disorder Z13.29 and Restless legs syndrome (RLS) G25.81 [facility] [address] [place] [address] 07/17/2024 [facility] [address] [place] [address] 07/22/2024 [facility] [address] [place] [address] 07/27/[address] [facility] [address] [place] [address] 08/06/[address] [facility] [address] [place] [address] 08/13/[address] [facility] [address] [place] [address] 09/15/[address] [facility] [address] [place] [address] 05/20/[address] [facility] [address] [place] [address] 05/28/[address] [facility] [address] [place] [address] 06/03/[address] [facility] [address] [place] [address] 06/25/[address] [facility] [address] [place] [address] 06/30/[address] [facility] [address] [place] [address] 07/09/[address] [facility] [address] [place] [address] 02/27/[address] [facility] [address] [place] [address] 03/04/[address] [facility] [address] [place] [address] 03/12/[address] [facility] [address] [place] [address] 03/19/[address] [facility] [address] [place] [address] 03/26/[address] [facility] [address] [place] [address] 04/02/[address] [facility] [address] [place] [address] 04/07/[address] [facility] [address] [place] [address] 04/15/[address] [facility] [address] [place] [address] 04/22/2024 JHONNY BARKLEY [facility] [address] [place], [place] [address] 04/29/2024 JHONNY BARKLEY [facility] [address] [place], [place] [address] 05/06/2024 JHONNY BARKLEY ASSESSMENTS Encounter Date Diagnosis Assessment Notes Treatment Notes Treatment Clinical Notes Section Notes 10/03/2023 Congestion of nasal sinus (ICD-10 - R09.81) #Chronic cough with asthma. Patient reports that she has been ill with URI symptoms since the early fall. She is due to have a chest CT without contrast next Saturday for further evaluation, ordered by her paster supervisor. Will check Legionella streptococcal and mycoplasma antigen [...] Dictation was accomplished with the use of [employer] voice recognition software, prone to medical misidentifications [...] have a chest CT without contrast next Wednesday for further evaluation, ordered by her paster supervisor. Will check Legionella streptococcal and mycoplasma antigen [...] Dictation was accomplished with the use of [employer] voice recognition software, prone to medical misidentifications [...] log exercise and discussed fitness Apps like mInfo which can help keep log off calories [...] Dictation was accomplished with the use of [employer] voice recognition software, prone to medical misidentifications [...] log exercise and discussed fitness Apps like [employer]Info which can help keep log off calories [...] Dictation was accomplished with the use of [employer] voice recognition software, prone to medical misidentifications [...] Weight 145. Will continue for 1 mor [facility]. Tolerating well with minimal side effects. Gained [...] Dictation was accomplished with the use of [employer] voice recognition software, prone to medical misidentifications [...] Weight 145. [facility] Tolerating well with minimal side effects. [...] Dictation was accomplished with the use of [employer] voice recognition software, prone to medical misidentifications [...] ia: Triglyceride elevated level of 156. Recommended lvhp-abh-wmehgik fish oil supplement. Will discuss with primary [...] Dictation was accomplished with the use of [employer] voice recognition software, prone to medical misidentifications [...] 07/30/2024 IgG deficiency (ICD- 10 - D80.3) 09/10/2024 BMI 23.0-23.9, adult (ICD-10 - Z68.23) [...] ia: Triglyceride elevated level of 156. Recommended kvwc-knp-cosiaza fish oil supplement. Will discuss with primary [...] Dictation was accomplished with the use of [employer] voice recognition software, prone to medical misidentifications [...] next visit it any questions/concerns arise. 09/10/2024 Hypogammaglobulinemi a (ICD-10 - D80.1) Sofia [...] ia: Triglyceride elevated level of 156. Recommended fjqs-bvb-vsiwcmi fish oil supplement. Will discuss with primary [...] Dictation was accomplished with the use of [employer] voice recognition software, prone to medical misidentifications [...] ia: Triglyceride elevated level of 156. Recommended yerh-jep-noxuhsg fish oil supplement. Will discuss with primary [...] Dictation was accomplished with the use of [employer] voice recognition software, prone to medical misidentifications [...] next visit it any questions/concerns arise. 02/20/2024 Hyperlipidemia (ICD- 10 - E78.5) 03/31/2024 History of breast cancer (ICD-10 - Z85.3) 49 year old F, recent dx of breast ca on Tamoxifen here for weight follow up # Overweight 03/31/25: BMI 25.9, Weight 145. Will continue for 1 mor [facility]. Tolerating well with minimal side effects. Gained [...] Dictation was accomplished with the use of [employer] voice recognition software, prone to medical misidentifications [...] log exercise and discussed fitness Apps like mInfo which can help keep log off calories [...] Dictation was accomplished with the use of Dragon voice recognition software, prone to medical misidentifications [...] Saturday for further evaluation, ordered by her paster supervisor. Will check Legionella streptococcal and mycoplasma antigen [...] Dictation was accomplished with the use of [employer] voice recognition software, prone to medical misidentifications [...] Saturday for further evaluation, ordered by her paster supervisor. Will check Legionella streptococcal and mycoplasma antigen [...] Dictation was accomplished with the use of [employer] voice recognition software, prone to medical misidentifications [...] log exercise and discussed fitness Apps like mInfo which can help keep log off calories [...] Dictation was accomplished with the use of [employer] voice recognition software, prone to medical misidentifications [...] Weight 145. Will continue for 1 mor [facility]. Tolerating well with minimal side effects. Gained [...] Dictation was accomplished with the use of [employer] voice recognition software, prone to medical misidentifications [...] D deficiency (ICD-10 - E55.9) 02/20/2024 Acquired hypothyroid ism (ICD-10 - E03.9) 02/20/2024 Screening for thyroi [...] log exercise and discussed fitness Apps like mInfo which can help keep log off calories [...] Dictation was accomplished with the use of [employer] voice recognition software, prone to medical misidentifications [...] log exercise and discussed fitness Apps like mInfo which can help keep log off calories [...] Dictation was accomplished with the use of [employer] voice recognition software, prone to medical misidentifications [...] X ray : Spines, lumbar 2 views Vitamin D, 25-Hydroxy 10/17/2018 Mycoplasma pneu. IgG/IgM Abs 10/03/2023 BUN, Creatinine 07/30/2024 25OH VITAMIN D 09/23/2020 CBC (COMPLETE BLOOD COUNT) 03/09/2019 CBC (COMPLETE BLOOD COUNT) 09/23/2020 CBC (COMPLETE BLOOD COUNT) 09/26/2021 CBC (COMPLETE BLOOD COUNT) 10/17/2018 COMPREHENSIVE METABOLIC PANEL 10/17/2018 COMPREHENSIVE METABOLIC PANEL 09/26/2021 COMPREHENSIVE METABOLIC PANEL 09/23/2020 HEMOGLOBIN A1C 10/17/2018 INSULIN 10/17/2018 LEGIONELLA ANTIGEN 10/03/2023 LIPID PANEL 09/23/2020 LIPID PANEL 09/26/2021 LIPID PANEL 10/17/2018 STREP PNEUMONIAE ANTIGEN, URINE 10/03/19 24 TSH WITH REFLEX TO FT4 10/17/2018 URINALYSIS W/REFLEX CULTURE 09/26/2021 Transferrin 02/11/2023 LIPID PANEL, STANDARD 02/11/2023 LIPID PANEL, STANDARD 02/20/2024 COMPREHENSIVE METABOLIC PANEL 02/20/2024 COMPREHENSIVE METABOLIC PANEL 02/11/2023 IRON AND TOTAL IRON BINDING CAPACITY 05/2023 CBC (INCLUDES DIFF/PLT) 02/11/2023 CBC (INCLUDES DIFF/PLT) 02/20/2024 URINALYSIS, COMPLETE 02/20/2024 HEMOGLOBIN A1c 02/20/2024 HEMOGLOBIN A1c 02/11/2023 VITAMIN B12 02/11/2023 VITAMIN B12 02/20/2024 FERRITIN 02/11/2023 FOLATE, RBC 02/11/2023 TSH 02/11/2023 TSH 02/20/2024 VITAMIN D,25-OH,TOTAL,IA 02/20/2024 VITAMIN D,25-OH,TOTAL,IA 02/11/2023 LYME AB SCREEN 04/25/2023 Next Appt Details Provider Name:JHONNY BARKLEY, 09/29/2024 03:15:00 PM, [address], [place], [address], Provider Name:NONI SOLORZANO, 10/22/2024 02:30:00 PM, [address], [place], [address], Insurance Providers Payer Name Payer Address Payer Phone Subscriber Number Group Number Insured Name Patient Relationship to Insured Coverage Start Date Coverage End Date [facility] [address] [place] [phone] [id number] [place] Self - patient is the insured MEDICATIONS ADMINISTERED Medication Instructions Date of Administration Dosage Notes MICC B12 INJECTION 12/29/2020 1 mL LOT [id number] MICC B12 INJECTION 01/12/2021 1 mL lot [id number] MICC B12 INJECTION 01/26/2021 [id number] MICC B12 INJECTION 02/08/2021 lot# [id number] MICC B12 INJECTION 02/23/2021 Lot # [id number] MICC B12 INJECTION 03/10/2021 1 mL [id number] MICC B12 INJECTION 03/23/2021 Lot # [id number] MICC B12 INJECTION 04/28/2021 1 mL [id number] MICC B12 INJECTION 02/20/2024 1 mg #[id number] MICC B12 INJECTION 09/10/2024 1 mL Semaglutide 02/27/2024 0.25 mg Semaglutide 03/04/2024 0.25 [...] 07/17/2024 0.5 mg Semaglutide 07/22/2024 0.5 mg Semaglutide 09/10/2024 0.25 mg Semaglutide 09/15/2024 0.25 mg MEDICAL (GENERAL) HISTORY Medical History History ICD Code Seasonal allergies J30.2 Asthma J45.909 Headache R51 History of breast cancer Z85.3 Rosacea, unspecified L71.9 Anxiety F41.9 Congenital cataract Q12.0 Basal cell carcinoma (BCC) o f skin of left upper extremity including shoulder C44.619 Hypogammaglobulinemia D80.1 Surgical History Surgery Date(Month/Year) cataract removal uteran oblation breast reduction 06-27-2022
--- OUTSIDE RECORDS SUMMARY | 2024-09-22 09:33 | XMS_ITS | Continuity of Care Document ---
Author Organization [facility] Address [address] [place] [address]- Care Team Providers Care Medical Receptionist Assistant Name Role Phone Filippo VILLAVICENCIO, Phani Bautista Primary Care Physician Encounter [facility] [id number] Date(s): 08/18/24 - 09/17/24 [facility] [address] [place] [address] Encounter Type: Triage Allergies, Adverse [...] 0 Refills, Maintenance, 08/18/24 8:26:00 AM EST, [facility] #[id number], 157, cm, 02/25/24 9:23:00 EDT, Height, 66.5, [...] 1 Refills, Maintenance, 02/25/24 4:36:00 PM EDT, [facility] #[id number], Partial fill upon patient request if the [...] Replace Required Details, Route to Pharmacy Electronically, [facility][id number], Partial fill upon patient request if the prescription is for a schedule II opioid drug., 157, cm, 09/16/24 16:12:00 EST, Height, 66.5, kg, 07/05/23 22:31:00 EST, Dry Weight Start Date: 09/16/24 Status: Ordered Quantity: 45.0 Unit: tablet Repeat number: 4 tamoxifen 20 mg oral tablet 1 tablet, By Mouth, Daily, # 90 tablet, 3 Refills, Maintenance, 08/13/24 9:15:00 AM EST, [facility] #[id number], 157, cm, 02/25/24 9:23:00 EDT, Height, 66.5, [...] Refills, Maintenance, 05/18/21 9:41:00 AM EDT, Gel, [facility] #[id number], Partial fill upon patient request if the [...] Care Team Personnel Name: Cheryl Callaway Position: [facility] Outreach Member Role: Lifetime Consulting Physician Address: [address] [place] [address] [facility] Weight [facility]agment [address] [place], [place] [address] Telecom: Name: Filippo VILLAVICENCIO, Phani Bautista Position: [facility] Outreach Member Role: PCP Address: [address] [place] [address] [address] [facility] Weight Management [place], [place] [address] Telecom: Care Team Related Persons Name: SANTI[employer]O NATION Insurance Providers Guarantor name: SOFIA NATION Health Plan Information #: 1 Payer: [employer] Member Number: NA Policy Number: NA Group Number: NA
--- OUTSIDE RECORDS SUMMARY | 2024-09-22 09:33 | XMS_ITS | Clinical Summary ---
Author Organization [facility] Address [address] [place] [address] Care Team Providers Care Steel Layer Name Role Phone Cheryl Escobar Primary Care Provider [phone] Encounters Date Type Department Care Team Description 09/18/2024 Telephone Gastroenterology - [address] [place] [address] Katharine Pat MD from Last 3 Months Social History [...] on file Sexual Orientation Not on file Obstetrics History Last Filed Vital Signs Vital Sign Reading Time Taken Comments Blood Pressure 127/68 05/10/2023 2:38 PM EDT Sit ting Left arm Pulse 74 05/10/2023 2:38 PM EDT Temperature - - Respiratory Rate - - Oxygen Saturation - - Inhaled Oxygen Concentration - - Weight 64 kg (141 lb) 05/10/2023 2:38 PM EDT Height - - Body Mass Index - - Plan of Treatment Health Maintenance Due Date Last Done Comments Breast Cancer Screening 1975 Pneumococcal Vaccine: Pediatrics (0 to 5 Years) and At-Risk Patients (6 to 64 Years) (1 of 2 - PCV) 1994 Cervical Cancer Screening: Pap Smear 01/21/1996 DTaP,Tdap,and Td Vaccines (2 - Td or Tdap) 03/03/2022 03/03/2012 Colorectal Cancer Screening: Colonoscopy 07/14/2022 Depression Screening 07/14/2022 HIV Screening 07/14/2022 Hepatitis C Screening 07/14/2022 Social Influencers of Health Screening 07/14/2022 COVID-19 Vaccine ( season) 2024 06/07/2021, 09/10/2020, 08/20/2020 Influenza Vaccine (#1) 2024 8, 05/19/2017, 05/15/2016, Additional history exists Hepatitis B Vaccines Completed 02/02/2002, 08/19/2001, 07/16/2001 HIB Vaccines Aged Out No longer eligi ble based on patient's age to complete this topic HPV Vaccines Aged Out No longer eligi ble based on patient's age to complete this topic Hepatitis A Vaccines Aged Out No long er eligible based on patient's age to complete this topic IPV Vaccines Aged Out No longer eligi ble based on patient's age to complete this topic MMR Vaccines Aged Out No longer eligi ble based on patient's age to complete this topic Meningococcal ACWY Vaccine Aged Out N o longer eligible based on patient's age to complete this topic Meningococcal B Vacine Aged Out No lo nger eligible based on patient's age to complete this topic RSV Immunization Patients Under 20 months Aged Out No longer eligible based on patient's age to complete this topic Varicella Vaccines Aged Out No longer eligible based on patient's age to complete this topic Care Teams Steel Layer Relationship Specialty Start Date End Date Cheryl Escobar PA [address] [place] [address] PCP - General 05/06/23
--- OUTSIDE RECORDS SUMMARY | 2024-09-22 09:33 | XMS_ITS | Clinical Summary ---
Author Organization [facility] Address [address] [place] [address] Care Team Providers Care Department Operations Manager Name Role Phone Cheryl Escobar PA-C Primary Care Provider [phone] Allergies Active Allergy Reactions Criticality Noted Date [...] Group Subscriber ID Effective Dates Phone Address [facility] [id number] 2023-Devin t [address] [facility] [address] [place] [address] [facility] Care Teams Department Operations Manager Relationship Specialty Start Date End Date Cheryl Escobar PA-C [address] [facility] [place] [address] PCP - General Hematology and Oncology 05/06/23
--- OUTSIDE RECORDS SUMMARY | 2024-09-22 09:34 | XMS_ITS | Clinical Summary ---
Author Organization [facility] Address [address] [place] [address] Care Team Providers Care Reference Services Head Name Role Phone Phani Barkley MD Primary Care Provider [phone] Allergies Active Allergy Reactions Criticality Noted Date [...] Screening 1975 Pap Smear 1975 Sigmoidoscopy 1975 Hepatitis B Vaccines (1 of 3 - 19+ 3-dose series) 1994 Pneumococcal Vaccine: Pediat arsalan (0-5 Years) and At-Risk Patients (6-50 Years) (1 of 2 - PCV) 1994 Mammogram 2015 DTaP,Tdap,and Td Vaccines (2 [...] (1 - 1-dose 75+ series) 2050 Insurance [facility] Care Teams Reference Services Head Relationship Specialty Start Date End Date Phani Barkley MD [address] [facility] [address] [place] [address] PCP - General 09/14/21
--- OUTSIDE RECORDS SUMMARY | 2024-09-22 09:34 | XMS_ITS | Clinical Summary ---
Author Organization [facility] Address [address] [place] [address] Care Team Providers Care Tools Developer Name Role Phone Unavailable Primary Care Provider Unavailabl e Encounters Date Type Department Care Team Description 07/09/2024 Telephone [facility] [place] [address] [place] [address], [address] [place] [phone] Eugene Taveras MD Results 07/09/2024 Scanned Document [facility] [address] [place] [phone] Eugene Taveras MD 07/03/2024 Orders Only [facility] [address], [address] [place] [phone] Eugene Taveras MD from Last 3 Months [...] your patient to us, Kiran Carrero MD [id number] (Electronically Signed - 08/14/2024 22:56) Narrative 08/14/2024 [...] Carrero MD 08/14/2024 10:56 PM EST RPWorkstation: [id number] Thank you for referring your patient to us, Kiran Carrero MD [id number] (Electronically Signed - 08/14/2024 22:56) Eugene Taveras MD IMG LEGACY PROCEDURE S from Last 3 Months
--- OUTSIDE RECORDS SUMMARY | 2024-09-22 09:34 | XMS_ITS | Continuity of Care Document ---
Author Organization [facility] Address [address] [place] [address]- Care Team Providers Care Clinical Quality Assurance Specialist Name Role Phone Filippo VILLAVICENCIO, Phani Bautista Primary Care Physician [phone] Encounter [facility] Date(s): 08/17/24 - 09/16/24 [facility] [address] [place] [address] Encounter Type: Triage Allergies, Adverse [...] 0 Refills, Maintenance, 08/18/24 8:26:00 AM EST, [facility] #[id number], 157, cm, 02/25/24 9:23:00 EDT, Height, 66.5, [...] 1 Refills, Maintenance, 02/25/24 4:36:00 PM EDT, [facility] #[id number], Partial fill upon patient request if the [...] Replace Required Details, Route to Pharmacy Electronically, [facility] #[id number], Partial fill upon patient request if the prescription is for a schedule II opioid drug., 157, cm, 09/16/24 16:12:00 EST, Height, 66.5, kg, 07/05/23 22:31:00 EST, Dry Weight Start Date: 09/16/24 Status: Ordered Quantity: 45.0 Unit: tablet Repeat number: 4 tamoxifen 20 mg oral tablet 1 tablet, By Mouth, Daily, # 90 tablet, 3 Refills, Maintenance, 08/13/24 9:15:00 AM EST, [facility] #[id number], 157, cm, 02/25/24 9:23:00 EDT, Height, 66.5, [...] Refills, Maintenance, 05/18/21 9:41:00 AM EDT, Gel, [facility] #[id number], Partial fill upon patient request if the [...] Care Team Personnel Name: Cheryl Callaway Position: [facility] Outreach Member Role: Lifetime Consulting Physician Address: [address] [place] [address] [facility] Weight Managment [address] [place], [place] [address] Telecom: Name: Filippo VILLAVICENCIO, Phani Bautista Position: [facility] Outreach Member Role: PCP Address: [address] [place] [address] [address] [facility] Weight Management [place], [place] [address] Telecom: Care Team Related Persons Name: [employer] Insurance Providers Guarantor name: SO[employer]IA [employer] Health Plan Information #: 1 Payer: [employer] Member Number: NA Policy Number: NA Group Number: NA
--- OUTSIDE RECORDS SUMMARY | 2024-09-22 09:34 | XMS_ITS | Encounter Summary ---
Author Organization [facility] Address [address] [place] [address] Care Team Providers Care Project Lead Name Role Phone Unavailable Primary Care Provider Unavailabl e Encounter Details Date Type Department Care Team (Late st Contact Info) Description 07/09/2024 Scanned Document [facility] [place] [address] [place] [address] Eugene Taveras MD [address] [facility] [address] [place] [address] Social History Tobacco Use Types Packs/Day Years [...]
--- OUTSIDE RECORDS SUMMARY | 2024-09-22 09:34 | XMS_ITS | Referral Summary ---
Author Organization [facility] Address [address] [place] [address] Care Team Providers Care Transaction Advisory Services Manager Name Role Phone Phani Barkley MD Primary Care Provider [phone] Allergies Active Allergy Reactions Criticality Noted Date [...] Plan of Treatment Not on file Insurance [facility] Care Teams Transaction Advisory Services Manager Relationship Specialty Start Date End Date Phani Barkley MD [address] [facility] [address] [place] [address] PCP - General 09/14/21
== END 2024-09-22 10:09 | disposition home or self-care (01) ==
PROVIDERS: PCP Internal Medicine; Visit Provider Hospitalist
DX: J41.1 Mucopurulent chronic bronchitis (principal); J32.9 Chronic sinusitis, unspecified; J45.40 Moderate persistent asthma, uncomplicated; T78.40XA Allergy, unspecified, initial encounter; D80.1 Nonfamilial hypogammaglobulinemia
CPT/HCPCS: 99214

== ENCOUNTER → 2024-09-22 09:02 | Outpatient (BNVA) | payer OTHER, SELFPAY | PROVIDERS: PCP Internal Medicine; Visit Provider Hospitalist ==

== ENCOUNTER 2025-04-30 15:35 | Outpatient (AMB) | payer OTHER, SELFPAY ==
[2025-04-30 15:45] VITALS: BP 110/76; PULSE 63; O2SAT 98; BMI 26.2
--- NOTE | 2025-04-30 15:45 | A.OFFVIS_ITS ---
Vital Signs 04/30/25 15:45 Height 5 ft 2 in Weight 143 lb 4.807 oz BMI 26.2 BP 110/76 Blood Pressure Location Lt brachial Position Sitting Pulse 63 Pulse Source Pulse Oximeter Pulse Oximetry (%) 98 Oxygen Delivery Method Room Air Intake Visit Reasons: asthma Brass Roller Required: No Accompanied by: Self / Same As Patient Allergies aspirin Allergy (Severe, Verified 04/30/25 15:46) Itching sulfamethoxazole (From Bactrim) Allergy (Severe, Verified 04/30/25 15:46) Difficulty Breathing trimethoprim (From Bactrim) Allergy (Severe, Verified 04/30/25 15:46) Difficulty Breathing Sulfa Drugs Adverse Reaction (Severe, Uncoded 09/22/24 09:13) Hives HPI Comments Details: The patient is a 50 year woman with a known history of allergies presenting with worsening cough. The patient states that she was in her usual state health until sometime in the winter time when she was exposed to a sick contact. She started developing worsening respiratory symptoms and cough. She ultimately after that went on a trip to [place]. While she was there she also became sick with a respiratory virus. She did test negative for COVID-19. Ultimately after that the patient started developing worsening productive cough. The mucus is excessive and discolored typically greenish in color. She was evaluated multiple times by medical insurance coder. She was given about 4 rounds of prednisone and antibiotics. Although she does feel better she feels like she is still having significant chest congestion. She still has a moderate productive cough. She feels like her lungs are getting better but still feels significant sinus congestion and postnasal drip. She had been evaluated by ENT as well. As part of the workup she did have a CT scan of the chest done at [facility] in 10/23/2023 which was personally by me. No evidence of any active disease Noted. Although possibly some mild bronchitis based on some thickening of the airways. In addition to that she has had some blood work Including a normal eosinophil count. Has not had blood work now in more than a year. Therefore will going to go ahead and request additional blood work to assess her immune system inflammatory conditions and also allergy issues. As far as exposures the patient has had exposure to mold. She does have a humidifier in her home though. No obvious smoldering home. Denies any birds. Denies any exposure to any fumes or toxins. She is a nonsmoker. Does not vape. 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 On examination, she does have significant inflammation nasal turbinates. The patient also has evidence of purulent secretions in her posterior pharynx. Her cough appears to be deep and congested consistent with lower respiratory involvement as well. 04/09/2024 the patient is here for a pulmonary follow-up visit. She is feeling a little better. She responded well to the Trelegy inhaler. Her chest tightness and wheezing has improved. In addition to that she has been on the azithromycin 3 times a week. Her chest congestion is also better. Although her nose is still an issue. She has had significant irritation to the nose. Specially when using the budesonide we did Neti bottle. She has been getting significant irritation and pain. The areas significantly inflamed to psych was before. Therefore, will go ahead and stop any kind of irritating nasal therapy at this time. We did review her blood work. She does have a low IgG suggesting some degree of hypogammaglobulinemia. Therefore will continue the azithromycin right now and will go ahead and see if she has been vaccinated for pneumonia. If she has not she can get her pneumococcal 23 Valent we can did check her titers a few weeks later to make sure that she is developing an adequate response in view of her immunodeficiency. In view of her significant sinusitis will go ahead and put a referral went to ENT in order to better address the issues. 09/22/2024 the patient is here for pulmonary follow-up visit. Overall she is doing better. She that has made a dramatic difference in her life. Respiratory elizalde she is doing also better. She is starting to run again. She has a raised coming up in October and then again in November. In the meantime she continues on the Trelegy. She continues on the azithromycin 3 times week. She feels these medications have been helpful. Will go ahead and continue them for now for the winter months but then the springtime she is going to start weaning off the azithromycin. If her symptoms worsen she will always call we can always help her with that. Meantime we did review her CT scan of the chest demonstrating a small hiatal hernia. We did talk about the reflux diet and making sure she avoids any triggers from a reflux standpoint. From an airway standpoint she still has a prolonged expiratory phase even with the Trelegy. I did recommend she use her inhaler prior to exercise. And also did provide her with peak flow in order for her to measure her numbers pre and post exercise. The patient is doing well otherwise will follow-up in the fall and should continue with immunology to receive her IVIG on a monthly basis. 04/30/2025 the patient is here for pulmonary follow-up visit. Overall she continues to do well. She continues to follow closely with immunology. The patient had responded very well to the IVIG although then she started developing crit significant cramping of her lower extremities. She was switched over to high Centra and now she is on a monthly subcutaneous IgG therapy that appears to be affecting beneficial. No more side effects. She continues on the Trelegy inhaler. Has not had to use her rescue inhaler. Overall feels like her asthma is in good control and she had been able to exercising run effectively. She has been monitoring her peak flows. She is scoring between mid 400-500. Overall fairly stable. Typically after the bronchodilators she does improve up to 500. Will plan to do pulmonary function studies the next time she returns in a year. The patient also is considering immunocompromised and has respiratory issues so therefore I would advise her for her to get the RSV vaccine now. I did give her a prescription for her to go to the pharmacy to get it. Will follow-up in a year's time with PFTs if any issues arise prior to that she can always call for further recommendations. [facility] Medical History (Updated 09/22/24 @ 21:13 by Pankaj Rucker MD) Primary immune deficiency disorder Allergies Asthma Sinusitis Chronic bronchitis Social History Patient Tobacco Use Status: Never used Tobacco Review of Systems Const Denies difficulty sleeping and Denies fever(s) Eyes Reports no additional complaints ENT Reports nasal congestion, Denies nasal discharge, Denies post nasal drip and Denies sinus pressure Card Denies chest pain Resp Denies change in phlegm color, Denies chest congestion, Reports cough and Denies wheezing GI Reports no additional complaints Musc Reports no additional complaints Skin/Breast Denies rash Carl/Lymph Denies lymphadenopathy Aller/Immun Denies wheezing Physical Exam Vital Signs: Last Vital Signs Pulse 63 04/30/25 15:45 BP 110/76 04/30/25 15:45 Pulse Ox 98 04/30/25 15:45 Oxygen Delivery Method Room Air 04/30/25 15:45 BMI result Body Mass Index 26.2 Const General: comfortable HEENT Ears: TM's normal bilaterally General nose exam: Normal external nose present and no nasal polyps Throat: Yes postnasal drainage Neck Neck: Yes supple Chest Chest palpation & inspection: normal inspection of the chest Resp Effort & Inspection: normal respiratory effort Auscultation: clear to auscultation bilaterally and lung sounds not diminished Cardio Heart sounds: S1 normal heart sound present and S2 normal heart sound present GI Palpation (GI): Soft to palpation Skin General skin exam: no rashes or lesions noted Extrem General: Yes no clubbing, cyanosis or edema Assessment & Plan Assessment & Plan (1) Chronic bronchitis: Comment: better Code(s): J42 - Unspecified chronic bronchitis Category: Medical Qualifiers: Chronic bronchitis type: mucopurulent Qualified Code(s): J41.1 - Mucopurulent chronic bronchitis (2) Asthma: Code(s): J45.909 - Unspecified asthma, uncomplicated Category: Medical Qualifiers: Asthma complication type: uncomplicated Asthma persistence: persistent Asthma severity: moderate Qualified Code(s): J45.40 - Moderate persistent asthma, uncomplicated (3) Allergies: Code(s): T78.40XA - Allergy, unspecified, initial encounter Category: Medical Qualifiers: Encounter type: initial encounter Qualified Code(s): T78.40XA - Allergy, unspecified, initial encounter (4) Hypogammaglobulinemia: Code(s): 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 Category: Medical Plan continue Trelegy 200mcg daily Xopenex as needed neti bottle nasonex peak flows start Pepcid PM should get Arexvy (RSV) holding azithromycin MWF, call if worsens IgG as per Immunology F/U 8-12 months with PFTs Orders: Orders PFT pulmonary function test 11 Months J45.40 - Moderate persistent asthma, uncomplicated Medications: New famotidine (Pepcid) 40 mg PO BEDTIME 30 tabs 5RF 30 days RSVPreF3 antigen-AS01E (PF) 120 mcg/0.5 mL 0.5 mL IM ONCE 1 ea 0RF 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, D84.89 - Other immunodeficiencies, J45.40 - Moderate persistent asthma, uncomplicated Coding Level of Care Code Est Pt Level 4 (31990) Complex EM visit Add On G2211 Diagnoses Mucopurulent chronic bronchitis J41.1 Chronic bronchitis type: mucopurulent Moderate persistent asthma without complication J45.40 Asthma complication type: uncomplicated Asthma persistence: persistent Asthma severity: moderate Allergy, initial encounter T78.40XA Encounter type: initial encounter Hypogammaglobulinemia D80.1 Time Spent (min) 18
--- OUTSIDE RECORDS SUMMARY | 2025-04-30 15:59 | XMS_ITS ---
Author Name [facility] Organization Unknown Care Team Organization Name Specialty Phone Email Start Date End [facility] 07/09/2024
--- OUTSIDE RECORDS SUMMARY | 2025-04-30 15:59 | XMS_ITS | Clinical Summary ---
Author Organization [facility] Address [address] [place] [address] Care Team Providers Care Senior Partner Name Role Phone Cheryl Escobar PA-C Primary [...] 74 05/10/2023 2:38 PM EDT Temperature 36.7 C (98.1 F) 05/10/2023 2:38 PM EDT Respiratory Rate - - Oxygen Saturation 71% [...] (2 - Td or Tdap) 03/03/2022 03/03/2012 Breast Cancer Screening (Mammogram) 2025 Shingrix-Zoster Vaccine (1 of 2) 2025 COVID-19 Vaccine ( season) 2025 06/07/2021, 09/10/2020, 08/20/2020 Influenza Vaccine (#1) 2025 8, 05/19/2017, 05/15/2016, Additional history exists Hepatitis B Vaccines Completed 02/02/2002, 08/19/2001, 07/16/2001 Pneumococcal Vaccine Aged Out No long er eligible based on patient's age to complete this topic RSV Ped < 20 months Aged Out No longe r eligible based on patient's age to complete this topic Care Teams Senior Partner Relationship Specialty Start Date End Date Cheryl Escobar PA-C [address] [facility] [place] [address] PCP - General Hematology and Oncology 05/06/23
--- OUTSIDE RECORDS SUMMARY | 2025-04-30 15:59 | XMS_ITS | Clinical Summary ---
Author Organization [facility] Address [address] [place] [address] Care Team Providers Care Fish Straightener Name Role Phone Phani Barkley MD Primary Care Provider [phone] Allergies Active Allergy Reactions Criticality Noted Date [...] 62 10/05/2021 8:47 AM EST Temperature 36.8 C (98.3 F) 10/05/2021 8:47 AM EST Respiratory Rate - - Oxygen Saturation - - Inhaled Oxygen Concentration - - Weight 63.9 kg (140 lb 12.8 oz) 10/05/2021 8:47 AM EST Height - - Body Mass Index - - Plan of Treatment Health Maintenance Due Date Last Done Comments Cologuard 1975 Colon Cancer Screening 1975 Colonoscopy 1975 FOBT / Fit Test 1975 HIV Screening 1975 Sigmoidoscopy 1975 Hepatitis B Vaccines (1 of 3 - 19+ 3-dose series) 1994 DTaP,Tdap,and Td Vaccines (2 - Td or Tdap) 03/03/2022 03/03/2012, 01/31/2001 Alcohol/Substance Use Screening 08/05/2024 Pneumococcal Vaccine: 50+ Ye ars (1 of 1 - PCV) 2025 Zoster Vaccines (1 of 2) 2025 COVID-19 Vaccine (4 - 2024-2 6 season) 2025 06/07/2021, 09/10/2020, 08/20/2020 Influenza Vaccine (#1) 2025 , 05/21/2018, 05/21/2017, Additional history exists RSV Vaccine (60+ years old a nd patients) (1 - 1-dose 75+ series) 2050 Insurance [facility] Care Teams Fish Straightener Relationship Specialty Start Date End Date Phani Barkley MD [address] [facility] [address] [place] [address] PCP - General 09/14/21
--- OUTSIDE RECORDS SUMMARY | 2025-04-30 15:59 | XMS_ITS | Clinical Summary ---
Author Organization [facility] Address [address] [place] [address] Phone Care Team Providers Care Mammal Keeper Name Role Phone Khushboo Barkley Primary Care Provider [phone] Angel Levine Unavailable Brittany Melgar MD Unavailable [phone] Medications brinzolamide (Azopt) 1 % ophthalmic suspension Dose Amount: 1 drop, Eye Both, TID, Special Instructions: 90 day supply please, Dispense Quantity: 15 mL, Refills: 3, Entered: 12/22/20 10:54:00 EDT, [id number] 1 Active desogestreL-eth inyl estradioL (Apri) 0.15-0.03 mg tablet Entered: 02/14/17 10:31:42 EDT 7 Active dorzolamide (Trusopt) 2 % ophthalmic solution Dose Amount: 1 drop, Eye Both, TID, Special Instructions: use either dorzolamide or brinzolamide but not both, Dispense Quantity: 10 mL, Entered: 10/28/17 22:06:39 [facility] [id number] Active PEDI MULTIVIT NO.17 W-FLUORIDE ORAL -- 0 Active Social History Tobacco Use Types Packs/Day Years Used Date Smoking Tobacco: Never Assessed Comments Unknown Sex and Gender Information Value Date Recorded Sex Assigned at Not on file Legal Sex Female 5:57 PM EDT Gender Identity Not on file Sexual Orientation Not on file Last Filed Vital Signs Vital Sign Reading Time Taken Comments Blood Pressure - - Pulse - - Temperature - - Respiratory Rate - - Oxygen Saturation - - Inhaled Oxygen Concentration - - Weight 65.8 kg (145 lb 1 oz) 12/26/2009 6:39 AM EDT Height - - Body Mass Index - - Plan of Treatment Not on file Care Teams Mammal Keeper Relationship Specialty Start Date End Date Filippo Khushboo [address] [place] [address] PCP - General 11/24/20 Angel Levine [address] [place] [id number] PCP - Clinical PCP 02/25/17 Brittany Melgar MD [address] [place] [id number] PCP - Insurance PCP 10/31/05
--- OUTSIDE RECORDS SUMMARY | 2025-04-30 15:59 | XMS_ITS | Encounter Summary ---
Author Organization [facility] Address [address] [place] [address] Care Team Providers Care Metal [employer]ing Trades Worker Name Role Phone Unavailable Primary Care Provider Unavailabl e Encounter Details Date Type Department Care Team (Late st Contact Info) Description 07/09/2024 Scanned Document [facility] [address] [place] [address] Eugene Taveras MD [address] [facility] [address] [place] [address] Social History Tobacco Use Types Packs/Day Years Used Date Smoking Tobacco: Never Assessed Comments Unknown Sex and Gender Information Value Date Recorded Sex Assigned at Not on file Legal Sex Female 11:29 AM EST Gender Identity Not on file Sexual Orientation Not on file documented as of this encounter Plan of Treatment Not on file documented as of this encounter Visit Diagnoses Not on filedocumented in this encounter
--- OUTSIDE RECORDS SUMMARY | 2025-04-30 15:59 | XMS_ITS | Clinical Summary ---
Author Organization [facility] Address [address] [place] [address] Care Team Providers Care Color Separation Photographer Name Role Phone Unavailable Primary Care Provider Unavailabl e Social History Tobacco Use Types Packs/Day Years [...] (1 of 3 - 19+ 3-dose series) 01/03 Pneumococcal Vaccines 50+ (1 of 1 - PCV) 2025 Zoster (Shingles) Vaccine (1 of 2) 2025 COVID-19 Vaccine (1 - 2023- season) 2025
== END 2025-04-30 16:18 | disposition home or self-care (01) ==
LOC: HO.HPS 15:35
PROVIDERS: PCP Internal Medicine; Visit Provider Hospitalist
DX: J41.1 Mucopurulent chronic bronchitis (principal); J45.40 Moderate persistent asthma, uncomplicated; T78.40XA Allergy, unspecified, initial encounter; D80.1 Nonfamilial hypogammaglobulinemia
CPT/HCPCS: 99214; G2211